=== PATIENT | male | born 1970 | race Caucasian/White ===

== ENCOUNTER 2018-12-16 18:21 | Inpatient (IN) ==
[2018-12-16] MEDS ORDERED: GLUCAGON 1 MG VIAL IM PRN (21:15)
[2018-12-16] MEDS ORDERED: SODIUM CHLORIDE 0.9% 1,000 ML IV SCH (21:30)
[2018-12-16] MEDS ORDERED: PIPERACILLIN/TAZOBACTAM 3,375 MG in SODIUM CHLORIDE 0.9% 100 ML IV SCH (21:30)
[2018-12-16 22:10] LABS: Basophils % 0.3 % (0.0-0.8); Eosinophils % 0.1 % (0.00-10.9); Hemoglobin 7.7 GM/DL (14.0-18.0); Immature Granulocytes % 1.5 %; Lymphocytes # 1.3 10*3/uL (1.4-4.0); Lymphocytes % 18.6 % (21.2-54.2); Mean Corpuscular HGB Conc 29.6 GM/DL (32-36); Mean Corpuscular Hemoglobin 25 PG (27-34); Mean Corpuscular Volume 83.1 FL (87-102); Mean Platelet Volume 9.1 FL (9.6-12.0); Monocytes # 0.7 10*3/uL (0.11-0.8); Monocytes % 9.6 % (1.7-12.7); Neutrophils # 4.8 10*3/uL (1.4-7.4); Neutrophils % 69.9 % (38.7-73.9); Platelet Count 202 T/CUMM (130-400); Red Blood Count 3.13 MC/CUMM (3.8-5.5); Red Cell Distribution Width 15.9 % (9.3-17.3); White Blood Count 6.9 T/CUMM (4-12)
[2018-12-16] MEDS: HEPARIN 5,000 UNIT/1 ML VIAL SUBCUT SCH (22:22)
[2018-12-16 22:30] LABS: ABG Base Excess -12.3 MMOL/L (-2.5-2.5); ABG HCO3 14.7 MMOL/L (20-26); ABG Oxygen Saturation 95.7 % (95-100); ABG PCO2 32.4 MM HG (35-48); ABG PH 7.247 (7.35-7.45); ABG PO2 88.5 MM HG (80-95); ABG TCO2 13.4 MMOL/L (23-27); Allen Test Positive
[2018-12-16 22:33] LABS: Alanine Aminotransferase 11 U/L (16-61); Albumin 1.8 G/DL (3.4-5.0); Alkaline Phosphatase 135 U/L (45-117); Aspartate Amino Transferase 17 U/L (0-37); Bilirubin,Total < 0.39 MG/DL (0.2-1.0); Blood Urea Nitrogen 59 MG/DL (7-18); Calcium 7.4 MG/DL (8.5-10.1); Glucose 49 MG/DL (74-106); Osmolality,Calculated 286.8 MOS/KG (273-304); Potassium 4.2 MMOL/L (3.5-5.1); Sodium 137 MMOL/L (136-145); Total Protein 6.3 G/DL (6.4-8.3)
[2018-12-16 22:41] LABS: Apearance,Urine CLOUDY (Clear); Bilirubin,Urine Negative (Negative); Blood, Urine Moderate mg/dL (Negative); Glucose,Urine (UA) 50 mg/dL (Negative); Ketones,Urine Negative (Negative); Mucus,Urine Occasional /LPF (Occasional); Nitrite,Urine Negative (Negative); Protein,Urine >=500 MG/DL; RBC,Urine 36 /HPF (0-4); Squamous Epithelial Cell,Urine Occasional /HPF (0-10); Urine Color Yellow (Yellow); Urine Urobilinogen < 2.0 EU/DL (0.2-1.0); WBC,Urine 208 /HPF (0-6)
[2018-12-16 22:45] LABS: Barbiturates Screen,Urine Negative (Negative); Benzodiazepines Screen,Urine Negative (Negative); Cannabinoid Screen,Urine Negative (Negative); Opiate Screen,Urine Negative (Negative); Phencyclidine Screen,Urine Negative (Negative)
[2018-12-16] MEDS ORDERED: DEXTROSE 50% 25 GM/50 ML SYRINGE IV ONE (23:02)
[2018-12-16] MEDS: DEXTROSE 50% 25 GM/50 ML VIAL IV PRN (23:03)
[2018-12-17] MEDS: INSULIN LISPRO 100 UNIT/ML SUBCUT SCH ×5 (00:58→20:57)
[2018-12-17] MEDS ORDERED: DEXTROSE 50% 25 GM/50 ML SYRINGE IV ONE (02:25)
[2018-12-17] MEDS: DEXTROSE 5% NACL 0.9% 1,000 ML IV SCH ×2 (02:25→10:25)
[2018-12-17] MEDS: DEXTROSE 50% 25 GM/50 ML VIAL IV PRN (02:27)
[2018-12-17] MEDS ORDERED: MORPHINE 4 MG/1 ML VIAL IV ONE (05:51)
[2018-12-17] MEDS ORDERED: MORPHINE 4 MG/1 ML VIAL ONE (05:54)
[2018-12-17] MEDS: HEPARIN 5,000 UNIT/1 ML VIAL SUBCUT SCH ×3 (06:01→20:58)
[2018-12-17 06:30] LABS: Calcium 7.9 MG/DL (8.5-10.1); Osmolality,Calculated 288.1 MOS/KG (273-304); Potassium 4.8 MMOL/L (3.5-5.1)
[2018-12-17 07:59] LABS: Basophils % 0.2 % (0.0-0.8); Eosinophils % 0.1 % (0.00-10.9); Hematocrit 31.6 VOL% (42.0-52.0); Hemoglobin 9.1 GM/DL (14.0-18.0); Immature Granulocytes % 1.1 %; Lymphocytes % 11.1 % (21.2-54.2); Mean Corpuscular HGB Conc 28.8 GM/DL (32-36); Mean Corpuscular Hemoglobin 24 PG (27-34); Mean Platelet Volume 9.1 FL (9.6-12.0); Monocytes # 0.8 10*3/uL (0.11-0.8); Monocytes % 9.2 % (1.7-12.7); Neutrophils # 6.8 10*3/uL (1.4-7.4); Neutrophils % 78.3 % (38.7-73.9); Platelet Count 196 T/CUMM (130-400); Red Blood Count 3.76 MC/CUMM (3.8-5.5); White Blood Count 8.7 T/CUMM (4-12)
[2018-12-17 08:58] LABS: Hypochromasia 1+; Platelet Estimate Adequate
[2018-12-17] MEDS: ASPIRIN EC 325 MG TABLET PO SCH (09:59)
[2018-12-17] MEDS: PANTOPRAZOLE 40 MG TABLET PO SCH (09:59)
[2018-12-17] MEDS: LINEZOLID INJ 600 MG in PREMIX 1 EACH IV SCH ×2 (09:59→20:50)
[2018-12-17] MEDS: LEVOFLOXACIN INJ 750 MG in PREMIX 1 EACH IV SCH (11:00)
[2018-12-17] MEDS: CARVEDILOL 3.125 MG TABLET PO SCH ×2 (13:28→20:57)
[2018-12-17] MEDS: SODIUM CHLORIDE 0.9% 1,000 ML IV SCH (15:11)
[2018-12-17] MEDS: ATORVASTATIN 40 MG TABLET PO SCH (20:57)
[2018-12-17] MEDS ORDERED: INSULIN GLARGINE 100 UNIT/ML SUBCUT SCH (21:00)
[2018-12-18] MEDS: ONDANSETRON 4 MG/2 ML VIAL IV PRN (00:20)
[2018-12-18] MEDS: SODIUM CHLORIDE 0.9% 1,000 ML IV SCH (02:15)
[2018-12-18] MEDS ORDERED: DEXTROSE 50% 25 GM/50 ML SYRINGE IV ONE (03:23)
[2018-12-18] MEDS: DEXTROSE 50% 25 GM/50 ML VIAL IV PRN (03:23)
[2018-12-18 04:33] LABS: Risk Ratio 3.38
[2018-12-18 05:53] LABS: Calcium 7.9 MG/DL (8.5-10.1); Osmolality,Calculated 283.4 MOS/KG (273-304); Potassium 5.7 MMOL/L (3.5-5.1)
[2018-12-18] MEDS: HEPARIN 5,000 UNIT/1 ML VIAL SUBCUT SCH ×3 (06:15→21:14)
[2018-12-18] MEDS: INSULIN LISPRO 100 UNIT/ML SUBCUT SCH ×4 (08:58→21:15)
[2018-12-18] MEDS: PANTOPRAZOLE 40 MG TABLET PO SCH (09:01)
[2018-12-18] MEDS: ASPIRIN EC 325 MG TABLET PO SCH (09:01)
[2018-12-18] MEDS: LINEZOLID INJ 600 MG in PREMIX 1 EACH IV SCH ×2 (09:02→22:06)
[2018-12-18] MEDS: CARVEDILOL 3.125 MG TABLET PO SCH ×2 (09:02→21:13)
[2018-12-18] MEDS: SODIUM BICARB INJ 50 MEQ in SODIUM CHLORIDE 0.45% 1,000 ML IV SCH (17:36)
[2018-12-18] MEDS: ATORVASTATIN 40 MG TABLET PO SCH (21:13)
[2018-12-19 02:44] LABS: Calcium 7.7 MG/DL (8.5-10.1); Osmolality,Calculated 288.4 MOS/KG (273-304); Potassium 5.3 MMOL/L (3.5-5.1)
[2018-12-19 02:53] LABS: Basophils % 0.3 % (0.0-0.8); Eosinophils # 0.1 10*3/uL (0.0-0.87); Eosinophils % 1.3 % (0.00-10.9); Hematocrit 27.4 VOL% (42.0-52.0); Hemoglobin 7.9 GM/DL (14.0-18.0); Immature Granulocytes Absolute 0.09 #; Mean Corpuscular HGB Conc 28.8 GM/DL (32-36); Mean Corpuscular Hemoglobin 24 PG (27-34); Mean Corpuscular Volume 84.6 FL (87-102); Mean Platelet Volume 9.5 FL (9.6-12.0); Monocytes # 1.1 10*3/uL (0.11-0.8); Monocytes % 11.8 % (1.7-12.7); NRBC # 0.02 10*3/uL; Neutrophils # 6.8 10*3/uL (1.4-7.4); Neutrophils % 74.6 % (38.7-73.9); Platelet Count 210 T/CUMM (130-400); Red Blood Count 3.24 MC/CUMM (3.8-5.5); Red Cell Distribution Width 16.7 % (9.3-17.3); White Blood Count 9.1 T/CUMM (4-12)
[2018-12-19] MEDS: HEPARIN 5,000 UNIT/1 ML VIAL SUBCUT SCH ×2 (05:37→14:19)
[2018-12-19] MEDS: ACETAMINOPHEN 325 MG TABLET PO PRN (09:26)
[2018-12-19] MEDS: ASPIRIN EC 325 MG TABLET PO SCH (09:26)
[2018-12-19] MEDS: INSULIN LISPRO 100 UNIT/ML SUBCUT SCH ×4 (09:26→21:44)
[2018-12-19] MEDS: CARVEDILOL 3.125 MG TABLET PO SCH (09:26)
[2018-12-19] MEDS: PANTOPRAZOLE 40 MG TABLET PO SCH (09:26)
[2018-12-19] MEDS: LEVOFLOXACIN INJ 750 MG in PREMIX 1 EACH IV SCH (09:27)
[2018-12-19] MEDS: LINEZOLID INJ 600 MG in PREMIX 1 EACH IV SCH (10:13)
[2018-12-19] MEDS ORDERED: MAGNESIUM SULF RIDER 4 GM in PREMIX 1 EACH IV PRN (10:14)
[2018-12-19] MEDS ORDERED: MAGNESIUM SULF RIDER 2 GM in PREMIX 1 EACH IV PRN (10:14)
[2018-12-19] MEDS ORDERED: SODIUM CHLORIDE 0.9% 1,000 ML IV PRN (11:23)
[2018-12-19] MEDS ORDERED: SODIUM CHLORIDE 0.9% 1,000 ML IV ONE (11:26)
[2018-12-19] MEDS ORDERED: SODIUM CHLORIDE 0.9% 2,000 ML IV ONE (11:29)
[2018-12-19] MEDS ORDERED: SODIUM CHLORIDE 0.45% IV SCH (11:49)
[2018-12-19] MEDS ORDERED: SODIUM BICARB IV SCH (11:49)
[2018-12-19] MEDS ORDERED: SODIUM BICARB INJ 50 MEQ in SODIUM CHLORIDE 0.45% 1,000 ML IV SCH (11:51)
[2018-12-19] MEDS ORDERED: VANCOMYCIN INJ 1,500 MG in SODIUM CHLORIDE 0.9% 500 ML IV PRN (11:58)
[2018-12-19] MEDS ORDERED: oxyCODONE/ACETAMINOPHEN 5-325 MG TABLET PO PRN (12:47)
[2018-12-19 13:13] LABS: Apearance,Urine CLOUDY (Clear); Bacteria,Urine Few /HPF (Few); Bilirubin,Urine Negative (Negative); Blood, Urine Moderate mg/dL (Negative); Glucose,Urine (UA) 50 mg/dL (Negative); Ketones,Urine Negative (Negative); Mucus,Urine Occasional /LPF (Occasional); Nitrite,Urine Negative (Negative); Protein,Urine 100 MG/DL; RBC,Urine 37 /HPF (0-4); Squamous Epithelial Cell,Urine Occasional /HPF (0-10); Urine Specific Gravity 1.015 (1.001-1.035); Urine Urobilinogen < 2.0 EU/DL (0.2-1.0); WBC,Urine 435 /HPF (0-6)
[2018-12-19 13:14] LABS: Urine Color Yellow (Yellow)
[2018-12-19] MEDS: PIPERACILLIN/TAZOBACTAM 3,375 MG in SODIUM CHLORIDE 0.9% 100 ML IV SCH ×2 (13:17→23:28)
[2018-12-19] MEDS ORDERED: NOREPINEPHRINE 8 MG in SODIUM CHLORIDE 0.9% 242 ML IV PRN (13:38)
[2018-12-19 13:39] LABS: ABG Base Excess -16.1 MMOL/L (-2.5-2.5); ABG Oxygen Saturation 95.6 % (95-100); ABG PCO2 30.1 MM HG (35-48); ABG TCO2 10.8 MMOL/L (23-27); Allen Test Positive; Pt O2 Delivery Device Room Air
[2018-12-19] MEDS ORDERED: SODIUM POLYSTYRENE SULFATE 15 GM/60 ML BOTTLE PO STA (13:39)
[2018-12-19] MEDS ORDERED: SODIUM BICARBONATE 50 MEQ/50 ML SYRINGE IV ONE (13:44)
[2018-12-19] MEDS ORDERED: SODIUM BICARB INJ 150 MEQ in STERILE WATER INJ 1,000 ML IV SCH (14:00)
[2018-12-19] MEDS: SODIUM BICARB INJ 150 MEQ in STERILE WATER INJ 1,000 ML IV SCH (14:12)
[2018-12-19] MEDS ORDERED: SODIUM BICARB INJ 100 MEQ in STERILE WATER INJ 1,000 ML IV SCH (15:00)
[2018-12-19 15:15] LABS: ABG Base Excess -13.7 MMOL/L (-2.5-2.5); ABG HCO3 13.7 MMOL/L (20-26); ABG Oxygen Saturation 98.8 % (95-100); ABG PCO2 31.9 MM HG (35-48); ABG PH 7.219 (7.35-7.45); ABG TCO2 12.5 MMOL/L (23-27); Allen Test Positive; Pt O2 Delivery Device Room Air
[2018-12-19 15:29] LABS: Calcium 7.4 MG/DL (8.5-10.1); Osmolality,Calculated 287.5 MOS/KG (273-304)
[2018-12-19 15:30] LABS: Potassium 6.1 MMOL/L (3.5-5.1)
[2018-12-19] MEDS ORDERED: CALCIUM GLUCONATE 2,000 MG in SODIUM CHLORIDE 0.9% 100 ML IV ONE (15:48)
[2018-12-19] MEDS ORDERED: DEXTROSE 50% 25 GM/50 ML SYRINGE IV ONE (15:48)
[2018-12-19] MEDS ORDERED: INSULIN REGULAR 100 UNIT/ML IV ONE (15:49)
[2018-12-19] MEDS ORDERED: ALBUTEROL 1.25 MG/3 ML NEB RESP TX ONE (15:50)
[2018-12-19] MEDS ORDERED: VANCOMYCIN INJ 2,000 MG in SODIUM CHLORIDE 0.9% 500 ML IV ONE (16:00)
[2018-12-19] MEDS ORDERED: VANCOMYCIN INJ 1,000 MG in SODIUM CHLORIDE 0.9% 250 ML IV ONE (16:00)
[2018-12-19] MEDS: SODIUM BICARB INJ 50 MEQ in SODIUM CHLORIDE 0.45% 1,000 ML IV SCH (21:42)
[2018-12-19] MEDS: PARoxetine 20 MG TABLET PO SCH (21:45)
[2018-12-19] MEDS: ATORVASTATIN 40 MG TABLET PO SCH (21:45)
[2018-12-19] MEDS: ONDANSETRON 4 MG/2 ML VIAL IV PRN (23:27)
[2018-12-19] MEDS: PROMETHAZINE 25 MG/1 ML VIAL IM PRN (23:53)
[2018-12-20 04:23] LABS: Basophils # 0.1 10*3/uL (0.0-0.2); Basophils % 0.5 % (0.0-0.8); Eosinophils # 0.1 10*3/uL (0.0-0.87); Eosinophils % 0.8 % (0.00-10.9); Hemoglobin 8.4 GM/DL (14.0-18.0); Immature Granulocytes % 1.4 %; Immature Granulocytes Absolute 0.15 #; Lymphocytes # 0.9 10*3/uL (1.4-4.0); Lymphocytes % 8.7 % (21.2-54.2); Mean Corpuscular HGB Conc 28.2 GM/DL (32-36); Mean Corpuscular Hemoglobin 24 PG (27-34); Mean Corpuscular Volume 86.1 FL (87-102); Mean Platelet Volume 9.4 FL (9.6-12.0); Monocytes # 0.7 10*3/uL (0.11-0.8); Monocytes % 6.3 % (1.7-12.7); NRBC # 0.02 10*3/uL; Neutrophils # 8.5 10*3/uL (1.4-7.4); Neutrophils % 82.3 % (38.7-73.9); Platelet Count 233 T/CUMM (130-400); Red Blood Count 3.46 MC/CUMM (3.8-5.5); Red Cell Distribution Width 16.9 % (9.3-17.3); White Blood Count 10.4 T/CUMM (4-12)
[2018-12-20 04:26] LABS: Hematocrit 29.8 VOL% (42.0-52.0)
[2018-12-20 04:43] LABS: Calcium 7.7 MG/DL (8.5-10.1); Osmolality,Calculated 288.5 MOS/KG (273-304); Potassium 5.8 MMOL/L (3.5-5.1)
[2018-12-20 05:20] LABS: Platelet Estimate Normal
[2018-12-20 05:21] LABS: Polychromasia Few
[2018-12-20] MEDS: INSULIN LISPRO 100 UNIT/ML SUBCUT SCH ×4 (08:33→21:39)
[2018-12-20] MEDS: PANTOPRAZOLE 40 MG TABLET PO SCH (10:23)
[2018-12-20] MEDS: VENLAFAXINE 37.5 MG TABLET PO SCH (10:23)
[2018-12-20] MEDS: ASPIRIN EC 81 MG TABLET PO SCH (10:23)
[2018-12-20] MEDS: ONDANSETRON 4 MG/2 ML VIAL IV PRN ×2 (11:19→23:13)
[2018-12-20] MEDS: PIPERACILLIN/TAZOBACTAM 3,375 MG in SODIUM CHLORIDE 0.9% 100 ML IV SCH (13:05)
[2018-12-20] MEDS: SODIUM BICARB INJ 150 MEQ in STERILE WATER INJ 1,000 ML IV SCH (16:25)
[2018-12-20] MEDS: ATORVASTATIN 40 MG TABLET PO SCH (21:40)
[2018-12-20] MEDS: PARoxetine 20 MG TABLET PO SCH (21:40)
[2018-12-20] MEDS: PROMETHAZINE 25 MG/1 ML VIAL IM PRN (23:25)
[2018-12-21] MEDS: PIPERACILLIN/TAZOBACTAM 3,375 MG in SODIUM CHLORIDE 0.9% 100 ML IV SCH ×3 (00:40→23:49)
[2018-12-21 06:02] LABS: Calcium 7.7 MG/DL (8.5-10.1); Osmolality,Calculated 292.5 MOS/KG (273-304); Potassium 5.8 MMOL/L (3.5-5.1)
[2018-12-21 06:16] LABS: Basophils % 0.4 % (0.0-0.8); Eosinophils # 0.1 10*3/uL (0.0-0.87); Eosinophils % 0.7 % (0.00-10.9); Hematocrit 30.2 VOL% (42.0-52.0); Hemoglobin 8.5 GM/DL (14.0-18.0); Immature Granulocytes % 1.9 %; Immature Granulocytes Absolute 0.19 #; Lymphocytes # 0.8 10*3/uL (1.4-4.0); Lymphocytes % 8.2 % (21.2-54.2); Mean Corpuscular HGB Conc 28.1 GM/DL (32-36); Mean Corpuscular Hemoglobin 24 PG (27-34); Mean Platelet Volume 9.3 FL (9.6-12.0); Monocytes # 0.6 10*3/uL (0.11-0.8); Monocytes % 6.4 % (1.7-12.7); Neutrophils # 8.1 10*3/uL (1.4-7.4); Neutrophils % 82.4 % (38.7-73.9); Platelet Count 232 T/CUMM (130-400); Red Blood Count 3.51 MC/CUMM (3.8-5.5); Red Cell Distribution Width 16.6 % (9.3-17.3); White Blood Count 9.9 T/CUMM (4-12)
[2018-12-21] MEDS: INSULIN LISPRO 100 UNIT/ML SUBCUT SCH ×4 (08:24→20:30)
[2018-12-21] MEDS: PANTOPRAZOLE 40 MG TABLET PO SCH (08:27)
[2018-12-21] MEDS: VENLAFAXINE 37.5 MG TABLET PO SCH (08:27)
[2018-12-21] MEDS: ASPIRIN EC 81 MG TABLET PO SCH (08:27)
[2018-12-21] MEDS ORDERED: SODIUM POLYSTYRENE SULFATE 15 GM/60 ML BOTTLE PO ONE ×2 (12:46→18:10)
[2018-12-21] MEDS: ONDANSETRON 4 MG/2 ML VIAL IV PRN ×2 (13:42→19:40)
[2018-12-21] MEDS: SODIUM BICARB INJ 150 MEQ in STERILE WATER INJ 1,000 ML IV SCH (17:00)
[2018-12-21] MEDS: ATORVASTATIN 40 MG TABLET PO SCH (20:31)
[2018-12-21] MEDS: PARoxetine 20 MG TABLET PO SCH (20:31)
[2018-12-22 05:13] LABS: Calcium 7.4 MG/DL (8.5-10.1); Osmolality,Calculated 293.5 MOS/KG (273-304); Potassium 5.3 MMOL/L (3.5-5.1)
[2018-12-22 05:44] LABS: Basophils % 0.3 % (0.0-0.8); Eosinophils # 0.1 10*3/uL (0.0-0.87); Eosinophils % 1.2 % (0.00-10.9); Hematocrit 28.6 VOL% (42.0-52.0); Immature Granulocytes % 1.7 %; Immature Granulocytes Absolute 0.19 #; Lymphocytes # 0.9 10*3/uL (1.4-4.0); Lymphocytes % 8.1 % (21.2-54.2); Mean Corpuscular HGB Conc 28.7 GM/DL (32-36); Mean Corpuscular Hemoglobin 25 PG (27-34); Mean Corpuscular Volume 85.9 FL (87-102); Mean Platelet Volume 9.5 FL (9.6-12.0); Monocytes # 0.7 10*3/uL (0.11-0.8); Monocytes % 6.4 % (1.7-12.7); Neutrophils # 9.1 10*3/uL (1.4-7.4); Neutrophils % 82.3 % (38.7-73.9); Platelet Count 219 T/CUMM (130-400); Red Blood Count 3.33 MC/CUMM (3.8-5.5); Red Cell Distribution Width 16.8 % (9.3-17.3)
[2018-12-22 05:45] LABS: Hemoglobin 8.2 GM/DL (14.0-18.0)
[2018-12-22 06:19] LABS: Hypochromasia 1+; Ovalocytes Slight; Platelet Estimate Adequate
[2018-12-22] MEDS: INSULIN LISPRO 100 UNIT/ML SUBCUT SCH ×4 (07:36→20:17)
[2018-12-22] MEDS ORDERED: VANCOMYCIN INJ 1,500 MG in SODIUM CHLORIDE 0.9% 500 ML IV ONE (09:00)
[2018-12-22] MEDS: PANTOPRAZOLE 40 MG TABLET PO SCH (09:05)
[2018-12-22] MEDS: VENLAFAXINE 37.5 MG TABLET PO SCH (09:05)
[2018-12-22] MEDS: ASPIRIN EC 81 MG TABLET PO SCH (09:05)
[2018-12-22] MEDS: PIPERACILLIN/TAZOBACTAM 3,375 MG in SODIUM CHLORIDE 0.9% 100 ML IV SCH ×2 (11:45→23:00)
[2018-12-22] MEDS ORDERED: fentaNYL 100 MCG/2 ML VIAL ONE (13:01)
[2018-12-22] MEDS ORDERED: [UNRECOGNIZED DRUG - OTHER] IV ONE (13:19)
[2018-12-22] MEDS ORDERED: FAMOTIDINE 20 MG/2 ML VIAL IV ONE ×2 (13:21→14:15)
[2018-12-22] MEDS ORDERED: SUGAMMADEX 200 MG/2 ML VIAL IV ONE (13:41)
[2018-12-22] MEDS ORDERED: ONDANSETRON 4 MG/2 ML VIAL ONE (14:14)
[2018-12-22] MEDS ORDERED: DEXAMETHASONE 4 MG/1 ML VIAL ONE (14:14)
[2018-12-22] MEDS ORDERED: SEVOFLURANE 1 UNIT/15 MINUTE INH ONE (14:14)
[2018-12-22] MEDS ORDERED: ROCURONIUM 100 MG/10 ML VIAL IV ONE (14:15)
[2018-12-22] MEDS ORDERED: ETOMIDATE 40 MG/20 ML VIAL IV ONE (14:15)
[2018-12-22] MEDS: SODIUM BICARB INJ 150 MEQ in STERILE WATER INJ 1,000 ML IV SCH (17:30)
[2018-12-22] MEDS: ATORVASTATIN 40 MG TABLET PO SCH (20:17)
[2018-12-22] MEDS: PARoxetine 20 MG TABLET PO SCH (20:17)
[2018-12-23 06:33] LABS: Calcium 7.3 MG/DL (8.5-10.1); Osmolality,Calculated 304.2 MOS/KG (273-304); Potassium 5.1 MMOL/L (3.5-5.1)
[2018-12-23 06:37] LABS: Basophils % 0.1 % (0.0-0.8); Hematocrit 28.1 VOL% (42.0-52.0); Immature Granulocytes % 1.8 %; Immature Granulocytes Absolute 0.14 #; Lymphocytes # 0.3 10*3/uL (1.4-4.0); Lymphocytes % 3.6 % (21.2-54.2); Mean Corpuscular HGB Conc 28.5 GM/DL (32-36); Mean Corpuscular Hemoglobin 24 PG (27-34); Mean Corpuscular Volume 85.7 FL (87-102); Monocytes % 0.5 % (1.7-12.7); NRBC # 0.02 10*3/uL; Neutrophils # 7.3 10*3/uL (1.4-7.4); Platelet Count 212 T/CUMM (130-400); Red Blood Count 3.28 MC/CUMM (3.8-5.5); Red Cell Distribution Width 16.7 % (9.3-17.3); White Blood Count 7.7 T/CUMM (4-12)
[2018-12-23 06:51] LABS: Lymphocytes 11 % (20-55); Platelet Estimate Normal; Polychromasia Few; Segmented Neutrophils 89 % (50-85); Total Cells Counted 100
[2018-12-23 06:52] LABS: Target Cells Few
[2018-12-23] MEDS: ASPIRIN EC 81 MG TABLET PO SCH (10:09)
[2018-12-23] MEDS: VENLAFAXINE 37.5 MG TABLET PO SCH (10:10)
[2018-12-23] MEDS: PANTOPRAZOLE 40 MG TABLET PO SCH (10:10)
[2018-12-23] MEDS: INSULIN LISPRO 100 UNIT/ML SUBCUT SCH ×3 (10:22→19:29)
[2018-12-23] MEDS: PIPERACILLIN/TAZOBACTAM 3,375 MG in SODIUM CHLORIDE 0.9% 100 ML IV SCH (13:50)
[2018-12-23] MEDS: SODIUM BICARB INJ 150 MEQ in STERILE WATER INJ 1,000 ML IV SCH (13:51)
[2018-12-23] MEDS ORDERED: OXYMETAZOLINE 0.05% NASAL SPRAY 15 ML BOTTLE BOTH NARES PRN (18:01)
[2018-12-23] MEDS ORDERED: INSULIN REGULAR 100 UNIT/ML ONE (19:28)
[2018-12-23] MEDS: ATORVASTATIN 40 MG TABLET PO SCH (21:07)
[2018-12-24] MEDS: PIPERACILLIN/TAZOBACTAM 3,375 MG in SODIUM CHLORIDE 0.9% 100 ML IV SCH ×2 (00:27→11:00)
[2018-12-24] MEDS: INSULIN LISPRO 100 UNIT/ML SUBCUT SCH ×4 (00:30→20:17)
[2018-12-24 07:18] LABS: Basophils % 0.1 % (0.0-0.8); Eosinophils % 0.1 % (0.00-10.9); Hematocrit 27.1 VOL% (42.0-52.0); Hemoglobin 7.9 GM/DL (14.0-18.0); Immature Granulocytes % 1.1 %; Immature Granulocytes Absolute 0.11 #; Lymphocytes # 0.7 10*3/uL (1.4-4.0); Lymphocytes % 6.9 % (21.2-54.2); Mean Corpuscular HGB Conc 29.2 GM/DL (32-36); Mean Corpuscular Hemoglobin 24 PG (27-34); Mean Corpuscular Volume 83.4 FL (87-102); Mean Platelet Volume 9.1 FL (9.6-12.0); Monocytes # 0.7 10*3/uL (0.11-0.8); Monocytes % 6.4 % (1.7-12.7); Neutrophils # 8.8 10*3/uL (1.4-7.4); Neutrophils % 85.4 % (38.7-73.9); Platelet Count 232 T/CUMM (130-400); Red Blood Count 3.25 MC/CUMM (3.8-5.5); Red Cell Distribution Width 16.9 % (9.3-17.3); White Blood Count 10.3 T/CUMM (4-12)
[2018-12-24 07:31] LABS: Calcium 6.7 MG/DL (8.5-10.1); Osmolality,Calculated 311.1 MOS/KG (273-304); Potassium 4.8 MMOL/L (3.5-5.1)
[2018-12-24 07:40] LABS: Prealbumin 10.2 MG/DL (20-40)
[2018-12-24 09:01] LABS: Hepatitis A Ab IgM Quant 0.19 Index; Hepatitis A Ab IgM Result Negative (Negative); Hepatitis B Core IgM Quant 0.12 Index; Hepatitis B Core IgM Result Negative (Negative); Hepatitis B Surface Ag Quant < 0.10 Index; Hepatitis B Surface Ag Result Negative (Negative); Hepatitis C Virus Ab Quant 0.18 Index; Hepatitis C Virus Ab Result Negative (Negative)
[2018-12-24] MEDS: ASPIRIN EC 81 MG TABLET PO SCH (11:01)
[2018-12-24] MEDS: SODIUM BICARB INJ 150 MEQ in STERILE WATER INJ 1,000 ML IV SCH (12:18)
[2018-12-24] MEDS ORDERED: LIDOCAINE 1% 20 ML VIAL ONE (13:01)
[2018-12-24] MEDS ORDERED: HEPARIN 5,000 UNIT/1 ML VIAL ONE (13:01)
[2018-12-24] MEDS: PANTOPRAZOLE 40 MG TABLET PO SCH (14:20)
[2018-12-24] MEDS ORDERED: ceFAZolin 1,000 MG VIAL ONE (14:41)
[2018-12-24] MEDS ORDERED: PROPOFOL 200 MG/20 ML VIAL IV ONE (15:12)
[2018-12-24] MEDS ORDERED: MIDAZOLAM 2 MG/2 ML VIAL ONE (15:13)
[2018-12-24] MEDS ORDERED: fentaNYL 100 MCG/2 ML VIAL ONE (15:13)
[2018-12-24] MEDS: SEVELAMER CARBONATE POWDER 2.4 GM PACK PER TUBE SCH ×2 (15:49→21:16)
[2018-12-24] MEDS ORDERED: INSULIN GLARGINE 100 UNIT/ML SUBCUT SCH (21:00)
[2018-12-25] MEDS: INSULIN LISPRO 100 UNIT/ML SUBCUT SCH ×5 (00:14→23:16)
[2018-12-25] MEDS: PIPERACILLIN/TAZOBACTAM 3,375 MG in SODIUM CHLORIDE 0.9% 100 ML IV SCH ×3 (00:14→23:18)
[2018-12-25] MEDS ORDERED: MORPHINE 4 MG/1 ML VIAL IV ONE ×2 (00:41→05:22)
[2018-12-25 04:26] LABS: Basophils % 0.1 % (0.0-0.8); Eosinophils % 0.4 % (0.00-10.9); Hemoglobin 7.5 GM/DL (14.0-18.0); Immature Granulocytes % 1.9 %; Immature Granulocytes Absolute 0.14 #; Lymphocytes # 0.7 10*3/uL (1.4-4.0); Mean Corpuscular HGB Conc 28.8 GM/DL (32-36); Mean Corpuscular Hemoglobin 24 PG (27-34); Mean Corpuscular Volume 83.6 FL (87-102); Mean Platelet Volume 9.1 FL (9.6-12.0); Monocytes # 0.6 10*3/uL (0.11-0.8); NRBC # 0.02 10*3/uL; Neutrophils # 6.1 10*3/uL (1.4-7.4); Neutrophils % 80.6 % (38.7-73.9); Platelet Count 190 T/CUMM (130-400); Red Blood Count 3.11 MC/CUMM (3.8-5.5); Red Cell Distribution Width 17.2 % (9.3-17.3); White Blood Count 7.5 T/CUMM (4-12)
[2018-12-25 04:47] LABS: Hypochromasia 1+; Ovalocytes Slight; Platelet Estimate Adequate
[2018-12-25 04:58] LABS: Osmolality,Calculated 306.1 MOS/KG (273-304)
[2018-12-25] MEDS: LANSOPRAZOLE ODT 30 MG TABLET PER TUBE SCH (08:22)
[2018-12-25] MEDS: ASPIRIN EC 81 MG TABLET PO SCH (08:22)
[2018-12-25] MEDS: SEVELAMER CARBONATE POWDER 2.4 GM PACK PER TUBE SCH ×3 (08:22→20:49)
[2018-12-25] MEDS ORDERED: CALCIUM GLUCONATE 1,000 MG in SODIUM CHLORIDE 0.9% 100 ML IV ONE (09:30)
[2018-12-25] MEDS: SODIUM BICARB INJ 150 MEQ in STERILE WATER INJ 1,000 ML IV SCH ×2 (09:39→12:41)
[2018-12-25] MEDS ORDERED: HEPARIN 10,000 UNIT/10 ML VIAL IV PRN (12:40)
[2018-12-25] MEDS: PROMETHAZINE 25 MG/1 ML VIAL IM PRN (20:30)
[2018-12-25] MEDS: CARVEDILOL 3.125 MG TABLET PO SCH (20:49)
[2018-12-25] MEDS: TAMSULOSIN 0.4 MG CAPSULE PO SCH (20:49)
[2018-12-25] MEDS ORDERED: INSULIN GLARGINE 100 UNIT/ML SUBCUT SCH (21:00)
[2018-12-25] MEDS: ZIPRASIDONE 20 MG/1 ML VIAL IM PRN (21:52)
[2018-12-26 04:09] LABS: Basophils % 0.1 % (0.0-0.8); Eosinophils % 0.5 % (0.00-10.9); Hematocrit 23.4 VOL% (42.0-52.0); Hemoglobin 6.7 GM/DL (14.0-18.0); Immature Granulocytes % 1.9 %; Immature Granulocytes Absolute 0.15 #; Lymphocytes # 0.9 10*3/uL (1.4-4.0); Lymphocytes % 10.6 % (21.2-54.2); Mean Corpuscular HGB Conc 28.6 GM/DL (32-36); Mean Corpuscular Hemoglobin 24 PG (27-34); Mean Corpuscular Volume 83.6 FL (87-102); Mean Platelet Volume 9.7 FL (9.6-12.0); Monocytes % 12.3 % (1.7-12.7); NRBC # 0.02 10*3/uL; Neutrophils % 74.6 % (38.7-73.9); Platelet Count 152 T/CUMM (130-400); Red Cell Distribution Width 16.9 % (9.3-17.3); White Blood Count 8.1 T/CUMM (4-12)
[2018-12-26] MEDS: ACETAMINOPHEN 325 MG TABLET PO PRN ×2 (04:10→21:17)
[2018-12-26 04:27] LABS: Calcium 6.1 MG/DL (8.5-10.1); Osmolality,Calculated 296.8 MOS/KG (273-304); Potassium 3.6 MMOL/L (3.5-5.1)
[2018-12-26 04:49] LABS: Anisocytosis 1+; Band Neutrophils 3 % (0-10); Eosinophils 3 % (0-10); Hypochromasia 2+; Lymphocytes 7 % (20-55); Segmented Neutrophils 81 % (50-85); Total Cells Counted 100
[2018-12-26 04:50] LABS: Ovalocytes 2+; Platelet Estimate Adequate; Tear Drop Cells Few
[2018-12-26] MEDS: INSULIN LISPRO 100 UNIT/ML SUBCUT SCH ×3 (05:54→18:47)
[2018-12-26] MEDS: TAMSULOSIN 0.4 MG CAPSULE PO SCH ×2 (08:13→21:17)
[2018-12-26] MEDS: LANSOPRAZOLE ODT 30 MG TABLET PER TUBE SCH (08:21)
[2018-12-26] MEDS: SEVELAMER CARBONATE POWDER 2.4 GM PACK PER TUBE SCH ×3 (08:22→21:17)
[2018-12-26] MEDS: ASPIRIN EC 81 MG TABLET PO SCH (08:22)
[2018-12-26] MEDS: ATORVASTATIN 10 MG TABLET PO SCH (08:22)
[2018-12-26] MEDS: CARVEDILOL 3.125 MG TABLET PO SCH (08:26)
[2018-12-26] MEDS ORDERED: amLODIPine 2.5 MG TABLET PO SCH (09:00)
[2018-12-26] MEDS: PIPERACILLIN/TAZOBACTAM 3,375 MG in SODIUM CHLORIDE 0.9% 100 ML IV SCH (14:25)
[2018-12-26] MEDS: ZIPRASIDONE 20 MG/1 ML VIAL IM PRN (15:53)
[2018-12-26] MEDS: CARVEDILOL 6.25 MG TABLET PO SCH (16:57)
[2018-12-26] MEDS: INSULIN GLARGINE 100 UNIT/ML SUBCUT SCH (21:18)
[2018-12-27] MEDS: PIPERACILLIN/TAZOBACTAM 3,375 MG in SODIUM CHLORIDE 0.9% 100 ML IV SCH ×2 (00:50→12:31)
[2018-12-27] MEDS: ZIPRASIDONE 20 MG/1 ML VIAL IM PRN (05:18)
[2018-12-27 05:35] LABS: Basophils % 0.2 % (0.0-0.8); Eosinophils # 0.1 10*3/uL (0.0-0.87); Eosinophils % 0.9 % (0.00-10.9); Hematocrit 22.8 VOL% (42.0-52.0); Hemoglobin 6.6 GM/DL (14.0-18.0); Immature Granulocytes % 1.7 %; Immature Granulocytes Absolute 0.17 #; Lymphocytes # 1.3 10*3/uL (1.4-4.0); Lymphocytes % 13.1 % (21.2-54.2); Mean Corpuscular HGB Conc 28.9 GM/DL (32-36); Mean Corpuscular Hemoglobin 24 PG (27-34); Mean Corpuscular Volume 84.1 FL (87-102); Mean Platelet Volume 9.9 FL (9.6-12.0); Monocytes # 1.1 10*3/uL (0.11-0.8); Monocytes % 10.9 % (1.7-12.7); Neutrophils # 7.5 10*3/uL (1.4-7.4); Neutrophils % 73.2 % (38.7-73.9); Platelet Count 143 T/CUMM (130-400); Red Blood Count 2.71 MC/CUMM (3.8-5.5); Red Cell Distribution Width 16.3 % (9.3-17.3); White Blood Count 10.2 T/CUMM (4-12)
[2018-12-27] MEDS: INSULIN LISPRO 100 UNIT/ML SUBCUT SCH ×5 (06:27→23:19)
[2018-12-27 06:49] LABS: Alanine Aminotransferase < 9 U/L (16-61); Albumin 1.8 G/DL (3.4-5.0); Alkaline Phosphatase 57 U/L (45-117); Aspartate Amino Transferase 24 U/L (0-37); Bilirubin,Total < 0.39 MG/DL (0.2-1.0); Blood Urea Nitrogen 48 MG/DL (7-18); Calcium 6.8 MG/DL (8.5-10.1); Glucose 161 MG/DL (74-106); Hypochromasia 2+; Microcytosis 1+; Osmolality,Calculated 288.8 MOS/KG (273-304); Ovalocytes Slight; Polychromasia Slight; Potassium 3.3 MMOL/L (3.5-5.1); Sodium 137 MMOL/L (136-145); Total Protein 5.4 G/DL (6.4-8.3)
[2018-12-27 06:50] LABS: Platelet Estimate Adequate; Target Cells Slight
[2018-12-27] MEDS ORDERED: SODIUM CHLORIDE 0.9% 1,000 ML IV PRN (07:27)
[2018-12-27] MEDS: ATORVASTATIN 10 MG TABLET PO SCH (08:09)
[2018-12-27] MEDS: ASPIRIN EC 81 MG TABLET PO SCH (08:09)
[2018-12-27] MEDS: LANSOPRAZOLE ODT 30 MG TABLET PER TUBE SCH (08:10)
[2018-12-27] MEDS: CARVEDILOL 6.25 MG TABLET PO SCH ×2 (08:10→16:17)
[2018-12-27] MEDS: amLODIPine 5 MG TABLET PO SCH (08:10)
[2018-12-27] MEDS: TAMSULOSIN 0.4 MG CAPSULE PO SCH ×2 (08:10→21:25)
[2018-12-27] MEDS: SEVELAMER CARBONATE POWDER 2.4 GM PACK PER TUBE SCH ×3 (08:10→21:24)
[2018-12-27] MEDS: ACETAMINOPHEN 325 MG TABLET PO PRN (09:48)
[2018-12-27 15:06] LABS: Hematocrit 26.5 VOL% (42.0-52.0); Hemoglobin 7.8 GM/DL (14.0-18.0)
[2018-12-27] MEDS: INSULIN GLARGINE 100 UNIT/ML SUBCUT SCH (21:25)
[2018-12-28] MEDS: PIPERACILLIN/TAZOBACTAM 3,375 MG in SODIUM CHLORIDE 0.9% 100 ML IV SCH ×2 (01:50→12:45)
[2018-12-28] MEDS: INSULIN LISPRO 100 UNIT/ML SUBCUT SCH ×3 (06:05→17:37)
[2018-12-28] MEDS ORDERED: DEXTROSE 50% 25 GM/50 ML SYRINGE IV PRN (06:30)
[2018-12-28 06:54] LABS: Calcium 7.5 MG/DL (8.5-10.1); Osmolality,Calculated 285.8 MOS/KG (273-304); Potassium 2.9 MMOL/L (3.5-5.1)
[2018-12-28] MEDS: CARVEDILOL 6.25 MG TABLET PO SCH ×2 (08:00→17:45)
[2018-12-28 08:15] LABS: Calcium 7.3 MG/DL (8.5-10.1); Osmolality,Calculated 286.8 MOS/KG (273-304); Potassium 2.9 MMOL/L (3.5-5.1)
[2018-12-28] MEDS: LANSOPRAZOLE ODT 30 MG TABLET PER TUBE SCH (09:00)
[2018-12-28] MEDS: ASPIRIN EC 81 MG TABLET PO SCH (09:00)
[2018-12-28] MEDS: ATORVASTATIN 10 MG TABLET PO SCH (09:00)
[2018-12-28] MEDS: amLODIPine 5 MG TABLET PO SCH (09:00)
[2018-12-28] MEDS: SEVELAMER CARBONATE POWDER 2.4 GM PACK PER TUBE SCH ×3 (09:00→20:34)
[2018-12-28] MEDS: TAMSULOSIN 0.4 MG CAPSULE PO SCH ×2 (09:00→20:33)
[2018-12-28] MEDS ORDERED: REGADENOSON 0.4 MG/5 ML SYRINGE IV ONE (10:26)
[2018-12-28] MEDS: ONDANSETRON 4 MG/2 ML VIAL IV PRN (12:05)
[2018-12-28] MEDS: INSULIN GLARGINE 100 UNIT/ML SUBCUT SCH (21:31)
[2018-12-29] MEDS: INSULIN LISPRO 100 UNIT/ML SUBCUT SCH ×5 (01:45→22:05)
[2018-12-29] MEDS: PIPERACILLIN/TAZOBACTAM 3,375 MG in SODIUM CHLORIDE 0.9% 100 ML IV SCH ×2 (02:25→13:10)
[2018-12-29 05:38] LABS: Basophils % 0.4 % (0.0-0.8); Eosinophils # 0.3 10*3/uL (0.0-0.87); Eosinophils % 2.9 % (0.00-10.9); Hematocrit 27.3 VOL% (42.0-52.0); Hemoglobin 8.2 GM/DL (14.0-18.0); Immature Granulocytes % 1.5 %; Immature Granulocytes Absolute 0.14 #; Lymphocytes # 1.2 10*3/uL (1.4-4.0); Lymphocytes % 12.5 % (21.2-54.2); Mean Corpuscular Hemoglobin 26 PG (27-34); Mean Corpuscular Volume 84.8 FL (87-102); Monocytes % 10.9 % (1.7-12.7); Neutrophils # 6.7 10*3/uL (1.4-7.4); Neutrophils % 71.8 % (38.7-73.9); Platelet Count 158 T/CUMM (130-400); Red Blood Count 3.22 MC/CUMM (3.8-5.5); Red Cell Distribution Width 15.8 % (9.3-17.3); White Blood Count 9.4 T/CUMM (4-12)
[2018-12-29 05:51] LABS: Calcium 7.6 MG/DL (8.5-10.1); Potassium 3.4 MMOL/L (3.5-5.1)
[2018-12-29] MEDS: ATORVASTATIN 10 MG TABLET PO SCH (08:10)
[2018-12-29] MEDS: ASPIRIN EC 81 MG TABLET PO SCH (08:10)
[2018-12-29] MEDS: TAMSULOSIN 0.4 MG CAPSULE PO SCH ×2 (08:10→22:04)
[2018-12-29] MEDS: CARVEDILOL 6.25 MG TABLET PO SCH ×2 (08:10→16:54)
[2018-12-29] MEDS: amLODIPine 5 MG TABLET PO SCH (08:10)
[2018-12-29] MEDS: SEVELAMER CARBONATE 800 MG TABLET PO SCH ×3 (08:10→22:04)
[2018-12-29] MEDS: PANTOPRAZOLE 40 MG TABLET PO SCH (08:10)
[2018-12-29] MEDS: INSULIN GLARGINE 100 UNIT/ML SUBCUT SCH (22:04)
[2018-12-30] MEDS: PIPERACILLIN/TAZOBACTAM 3,375 MG in SODIUM CHLORIDE 0.9% 100 ML IV SCH (01:35)
[2018-12-30 05:50] LABS: Basophils % 0.4 % (0.0-0.8); Eosinophils # 0.3 10*3/uL (0.0-0.87); Eosinophils % 3.5 % (0.00-10.9); Hematocrit 26.9 VOL% (42.0-52.0); Hemoglobin 7.9 GM/DL (14.0-18.0); Immature Granulocytes % 1.1 %; Immature Granulocytes Absolute 0.08 #; Lymphocytes # 1.3 10*3/uL (1.4-4.0); Lymphocytes % 17.6 % (21.2-54.2); Mean Corpuscular HGB Conc 29.4 GM/DL (32-36); Mean Corpuscular Hemoglobin 25 PG (27-34); Mean Corpuscular Volume 84.9 FL (87-102); Mean Platelet Volume 10.2 FL (9.6-12.0); Monocytes % 14.5 % (1.7-12.7); Neutrophils # 4.5 10*3/uL (1.4-7.4); Neutrophils % 62.9 % (38.7-73.9); Platelet Count 170 T/CUMM (130-400); Red Blood Count 3.17 MC/CUMM (3.8-5.5); Red Cell Distribution Width 15.8 % (9.3-17.3); White Blood Count 7.2 T/CUMM (4-12)
[2018-12-30 06:05] LABS: Calcium 7.8 MG/DL (8.5-10.1); Osmolality,Calculated 286.5 MOS/KG (273-304); Potassium 3.3 MMOL/L (3.5-5.1)
[2018-12-30] MEDS: INSULIN LISPRO 100 UNIT/ML SUBCUT SCH ×4 (07:57→21:02)
[2018-12-30] MEDS: CARVEDILOL 6.25 MG TABLET PO SCH ×2 (08:08→16:30)
[2018-12-30] MEDS: ASPIRIN EC 81 MG TABLET PO SCH (08:08)
[2018-12-30] MEDS: PANTOPRAZOLE 40 MG TABLET PO SCH (08:08)
[2018-12-30] MEDS: amLODIPine 5 MG TABLET PO SCH (08:08)
[2018-12-30] MEDS: SEVELAMER CARBONATE 800 MG TABLET PO SCH ×2 (08:08→16:30)
[2018-12-30] MEDS: ATORVASTATIN 10 MG TABLET PO SCH (08:08)
[2018-12-30] MEDS: TAMSULOSIN 0.4 MG CAPSULE PO SCH ×2 (08:08→21:02)
[2018-12-30] MEDS: LACTOBACILLUS RHAMNOSUS GG CAPSULE PO SCH ×2 (08:54→21:01)
[2018-12-30] MEDS: ceFAZolin 1,000 MG in SYRINGE 1 EACH IV SCH (16:30)
[2018-12-30] MEDS: INSULIN GLARGINE 100 UNIT/ML SUBCUT SCH (21:02)
[2018-12-31 07:14] LABS: Basophils % 0.5 % (0.0-0.8); Eosinophils # 0.2 10*3/uL (0.0-0.87); Hemoglobin 8.9 GM/DL (14.0-18.0); Immature Granulocytes % 0.7 %; Immature Granulocytes Absolute 0.06 #; Lymphocytes # 1.4 10*3/uL (1.4-4.0); Lymphocytes % 17.1 % (21.2-54.2); Mean Corpuscular HGB Conc 29.7 GM/DL (32-36); Mean Corpuscular Hemoglobin 25 PG (27-34); Mean Corpuscular Volume 85.2 FL (87-102); Mean Platelet Volume 10.1 FL (9.6-12.0); Monocytes # 1.4 10*3/uL (0.11-0.8); Monocytes % 17.2 % (1.7-12.7); Neutrophils # 4.9 10*3/uL (1.4-7.4); Neutrophils % 61.5 % (38.7-73.9); Platelet Count 181 T/CUMM (130-400); Red Blood Count 3.52 MC/CUMM (3.8-5.5); Red Cell Distribution Width 15.8 % (9.3-17.3)
[2018-12-31 07:35] LABS: Alanine Aminotransferase < 6 U/L (16-61); Albumin 1.8 G/DL (3.4-5.0); Alkaline Phosphatase 76 U/L (45-117); Aspartate Amino Transferase 14 U/L (0-37); Bilirubin,Total < 0.39 MG/DL (0.2-1.0); Blood Urea Nitrogen 41 MG/DL (7-18); Glucose 60 MG/DL (74-106); Osmolality,Calculated 284.5 MOS/KG (273-304); Potassium 3.4 MMOL/L (3.5-5.1); Sodium 139 MMOL/L (136-145); Total Protein 6.4 G/DL (6.4-8.3)
[2018-12-31 07:40] LABS: Anisocytosis 1+; Band Neutrophils 6 % (0-10); Eosinophils 5 % (0-10); Lymphocytes 11 % (20-55); Platelet Estimate Normal; Segmented Neutrophils 66 % (50-85); Total Cells Counted 100
[2018-12-31] MEDS: SEVELAMER CARBONATE 800 MG TABLET PO SCH ×3 (08:08→17:10)
[2018-12-31] MEDS: CARVEDILOL 6.25 MG TABLET PO SCH (08:09)
[2018-12-31] MEDS: ATORVASTATIN 10 MG TABLET PO SCH (08:09)
[2018-12-31] MEDS: INSULIN LISPRO 100 UNIT/ML SUBCUT SCH ×4 (08:09→20:51)
[2018-12-31] MEDS: TAMSULOSIN 0.4 MG CAPSULE PO SCH ×2 (08:09→20:51)
[2018-12-31] MEDS: amLODIPine 5 MG TABLET PO SCH (08:09)
[2018-12-31] MEDS: PANTOPRAZOLE 40 MG TABLET PO SCH (08:09)
[2018-12-31] MEDS: ASPIRIN EC 81 MG TABLET PO SCH (08:09)
[2018-12-31] MEDS: LACTOBACILLUS RHAMNOSUS GG CAPSULE PO SCH ×2 (08:09→20:51)
[2018-12-31] MEDS ORDERED: CARVEDILOL 6.25 MG TABLET PO SCH (10:29)
[2018-12-31] MEDS ORDERED: methylPREDNISolone SOD SUC 125 MG/2 ML VIAL ONE (13:06)
[2018-12-31] MEDS ORDERED: diphenhydrAMINE 50 MG/1 ML VIAL ONE (13:06)
[2018-12-31] MEDS ORDERED: methylPREDNISolone SOD SUC 125 MG/2 ML VIAL IV ONE (13:22)
[2018-12-31] MEDS ORDERED: diphenhydrAMINE 50 MG/1 ML VIAL IV ONE (13:22)
[2018-12-31] MEDS: ceFAZolin 1,000 MG in SYRINGE 1 EACH IV SCH (17:09)
[2018-12-31] MEDS: INSULIN GLARGINE 100 UNIT/ML SUBCUT SCH (20:51)
[2019-01-01 05:55] LABS: Basophils % 0.2 % (0.0-0.8); Hematocrit 27.5 VOL% (42.0-52.0); Hemoglobin 8.2 GM/DL (14.0-18.0); Immature Granulocytes % 1.1 %; Immature Granulocytes Absolute 0.06 #; Lymphocytes # 0.6 10*3/uL (1.4-4.0); Lymphocytes % 11.8 % (21.2-54.2); Mean Corpuscular HGB Conc 29.8 GM/DL (32-36); Mean Corpuscular Hemoglobin 25 PG (27-34); Mean Corpuscular Volume 83.3 FL (87-102); Mean Platelet Volume 10.5 FL (9.6-12.0); Monocytes # 0.3 10*3/uL (0.11-0.8); Monocytes % 6.3 % (1.7-12.7); Neutrophils # 4.4 10*3/uL (1.4-7.4); Neutrophils % 80.6 % (38.7-73.9); Platelet Count 217 T/CUMM (130-400); Red Cell Distribution Width 15.4 % (9.3-17.3); White Blood Count 5.4 T/CUMM (4-12)
[2019-01-01 06:19] LABS: Alanine Aminotransferase < 9 U/L (16-61); Albumin 2.2 G/DL (3.4-5.0); Alkaline Phosphatase 84 U/L (45-117); Aspartate Amino Transferase 16 U/L (0-37); Blood Urea Nitrogen 30 MG/DL (7-18); Calcium 8.3 MG/DL (8.5-10.1); Glucose 260 MG/DL (74-106); Osmolality,Calculated 282.2 MOS/KG (273-304); Potassium 3.9 MMOL/L (3.5-5.1); Sodium 134 MMOL/L (136-145); Total Protein 6.8 G/DL (6.4-8.3)
[2019-01-01] MEDS: INSULIN LISPRO 100 UNIT/ML SUBCUT SCH ×4 (09:21→21:51)
[2019-01-01] MEDS: ATORVASTATIN 10 MG TABLET PO SCH (09:22)
[2019-01-01] MEDS: CARVEDILOL 25 MG TABLET PO SCH ×2 (09:22→21:51)
[2019-01-01] MEDS: ASPIRIN EC 81 MG TABLET PO SCH (09:22)
[2019-01-01] MEDS: PANTOPRAZOLE 40 MG TABLET PO SCH (09:22)
[2019-01-01] MEDS: LACTOBACILLUS RHAMNOSUS GG CAPSULE PO SCH ×2 (09:22→21:54)
[2019-01-01] MEDS: TAMSULOSIN 0.4 MG CAPSULE PO SCH ×2 (09:22→21:51)
[2019-01-01] MEDS: SEVELAMER CARBONATE 800 MG TABLET PO SCH ×3 (09:22→17:26)
[2019-01-01] MEDS: amLODIPine 5 MG TABLET PO SCH (09:22)
[2019-01-01] MEDS: INSULIN GLARGINE 100 UNIT/ML SUBCUT SCH (21:51)
[2019-01-02 06:16] LABS: Basophils % 0.5 % (0.0-0.8); Eosinophils # 0.1 10*3/uL (0.0-0.87); Eosinophils % 0.8 % (0.00-10.9); Hematocrit 28.1 VOL% (42.0-52.0); Hemoglobin 8.3 GM/DL (14.0-18.0); Immature Granulocytes % 0.7 %; Immature Granulocytes Absolute 0.06 #; Lymphocytes # 1.5 10*3/uL (1.4-4.0); Lymphocytes % 18.1 % (21.2-54.2); Mean Corpuscular HGB Conc 29.5 GM/DL (32-36); Mean Corpuscular Hemoglobin 25 PG (27-34); Mean Corpuscular Volume 85.2 FL (87-102); Mean Platelet Volume 10.2 FL (9.6-12.0); Monocytes # 0.9 10*3/uL (0.11-0.8); Monocytes % 10.6 % (1.7-12.7); Neutrophils # 5.9 10*3/uL (1.4-7.4); Neutrophils % 69.3 % (38.7-73.9); Platelet Count 231 T/CUMM (130-400); Red Cell Distribution Width 15.9 % (9.3-17.3); White Blood Count 8.5 T/CUMM (4-12)
[2019-01-02 06:44] LABS: Alanine Aminotransferase < 6 U/L (16-61); Alkaline Phosphatase 70 U/L (45-117); Aspartate Amino Transferase 10 U/L (0-37); Bilirubin,Total < 0.39 MG/DL (0.2-1.0); Blood Urea Nitrogen 39 MG/DL (7-18); Glucose 101 MG/DL (74-106); Osmolality,Calculated 285.5 MOS/KG (273-304); Potassium 3.9 MMOL/L (3.5-5.1); Sodium 139 MMOL/L (136-145); Total Protein 6.3 G/DL (6.4-8.3)
[2019-01-02] MEDS: PANTOPRAZOLE 40 MG TABLET PO SCH (09:09)
[2019-01-02] MEDS: LACTOBACILLUS RHAMNOSUS GG CAPSULE PO SCH ×2 (09:09→21:42)
[2019-01-02] MEDS: SEVELAMER CARBONATE 800 MG TABLET PO SCH ×3 (09:09→17:46)
[2019-01-02] MEDS: TAMSULOSIN 0.4 MG CAPSULE PO SCH ×2 (09:09→21:40)
[2019-01-02] MEDS: ASPIRIN EC 81 MG TABLET PO SCH (09:09)
[2019-01-02] MEDS: amLODIPine 5 MG TABLET PO SCH (09:10)
[2019-01-02] MEDS: ATORVASTATIN 10 MG TABLET PO SCH (09:10)
[2019-01-02] MEDS: CARVEDILOL 25 MG TABLET PO SCH ×2 (09:10→21:40)
[2019-01-02] MEDS: INSULIN LISPRO 100 UNIT/ML SUBCUT SCH ×4 (09:12→21:40)
[2019-01-02] MEDS: INSULIN GLARGINE 100 UNIT/ML SUBCUT SCH (21:40)
[2019-01-03 05:18] LABS: Basophils # 0.1 10*3/uL (0.0-0.2); Basophils % 0.8 % (0.0-0.8); Eosinophils # 0.2 10*3/uL (0.0-0.87); Eosinophils % 2.5 % (0.00-10.9); Hematocrit 27.6 VOL% (42.0-52.0); Hemoglobin 8.1 GM/DL (14.0-18.0); Immature Granulocytes % 0.5 %; Immature Granulocytes Absolute 0.03 #; Lymphocytes # 1.2 10*3/uL (1.4-4.0); Lymphocytes % 19.3 % (21.2-54.2); Mean Corpuscular HGB Conc 29.3 GM/DL (32-36); Mean Corpuscular Hemoglobin 25 PG (27-34); Monocytes # 0.7 10*3/uL (0.11-0.8); Monocytes % 11.3 % (1.7-12.7); Neutrophils % 65.6 % (38.7-73.9); Platelet Count 239 T/CUMM (130-400); Red Blood Count 3.21 MC/CUMM (3.8-5.5); Red Cell Distribution Width 15.8 % (9.3-17.3); White Blood Count 6.1 T/CUMM (4-12)
[2019-01-03 05:42] LABS: Alanine Aminotransferase < 9 U/L (16-61); Albumin 2.1 G/DL (3.4-5.0); Alkaline Phosphatase 73 U/L (45-117); Aspartate Amino Transferase 9 U/L (0-37); Blood Urea Nitrogen 25 MG/DL (7-18); Calcium 7.9 MG/DL (8.5-10.1); Glucose 226 MG/DL (74-106); Osmolality,Calculated 289.4 MOS/KG (273-304); Potassium 3.8 MMOL/L (3.5-5.1); Sodium 140 MMOL/L (136-145); Total Protein 6.1 G/DL (6.4-8.3)
[2019-01-03] MEDS: amLODIPine 5 MG TABLET PO SCH (09:23)
[2019-01-03] MEDS: TAMSULOSIN 0.4 MG CAPSULE PO SCH ×2 (09:23→21:15)
[2019-01-03] MEDS: ASPIRIN EC 81 MG TABLET PO SCH (09:23)
[2019-01-03] MEDS: CARVEDILOL 25 MG TABLET PO SCH ×2 (09:23→21:15)
[2019-01-03] MEDS: ATORVASTATIN 10 MG TABLET PO SCH (09:23)
[2019-01-03] MEDS: LACTOBACILLUS RHAMNOSUS GG CAPSULE PO SCH ×2 (09:23→21:15)
[2019-01-03] MEDS: SEVELAMER CARBONATE 800 MG TABLET PO SCH ×3 (09:23→17:08)
[2019-01-03] MEDS: PANTOPRAZOLE 40 MG TABLET PO SCH (09:23)
[2019-01-03] MEDS: INSULIN LISPRO 100 UNIT/ML SUBCUT SCH ×4 (09:29→22:58)
[2019-01-03] MEDS: INSULIN GLARGINE 100 UNIT/ML SUBCUT SCH (22:58)
[2019-01-04 06:16] LABS: Basophils # 0.1 10*3/uL (0.0-0.2); Basophils % 0.7 % (0.0-0.8); Eosinophils # 0.2 10*3/uL (0.0-0.87); Eosinophils % 2.6 % (0.00-10.9); Hematocrit 28.6 VOL% (42.0-52.0); Hemoglobin 8.4 GM/DL (14.0-18.0); Immature Granulocytes % 0.3 %; Immature Granulocytes Absolute 0.02 #; Lymphocytes # 1.4 10*3/uL (1.4-4.0); Lymphocytes % 19.7 % (21.2-54.2); Mean Corpuscular HGB Conc 29.4 GM/DL (32-36); Mean Corpuscular Hemoglobin 25 PG (27-34); Mean Corpuscular Volume 85.6 FL (87-102); Mean Platelet Volume 10.5 FL (9.6-12.0); Monocytes # 0.7 10*3/uL (0.11-0.8); Monocytes % 9.3 % (1.7-12.7); Neutrophils # 4.9 10*3/uL (1.4-7.4); Neutrophils % 67.4 % (38.7-73.9); Platelet Count 243 T/CUMM (130-400); Red Blood Count 3.34 MC/CUMM (3.8-5.5); Red Cell Distribution Width 15.9 % (9.3-17.3); White Blood Count 7.3 T/CUMM (4-12)
[2019-01-04 06:34] LABS: Alanine Aminotransferase 9 U/L (16-61); Albumin 2.1 G/DL (3.4-5.0); Alkaline Phosphatase 73 U/L (45-117); Aspartate Amino Transferase 12 U/L (0-37); Bilirubin,Total < 0.39 MG/DL (0.2-1.0); Blood Urea Nitrogen 32 MG/DL (7-18); Glucose 131 MG/DL (74-106); Osmolality,Calculated 289.3 MOS/KG (273-304); Potassium 3.9 MMOL/L (3.5-5.1); Sodium 141 MMOL/L (136-145); Total Protein 6.3 G/DL (6.4-8.3)
[2019-01-04] MEDS: INSULIN LISPRO 100 UNIT/ML SUBCUT SCH ×3 (08:27→15:36)
[2019-01-04] MEDS ORDERED: methylPREDNISolone SOD SUC 125 MG/2 ML VIAL ONE (09:13)
[2019-01-04] MEDS ORDERED: diphenhydrAMINE 50 MG/1 ML VIAL ONE (09:14)
[2019-01-04] MEDS ORDERED: diphenhydrAMINE 50 MG/1 ML VIAL IV ONE (09:15)
[2019-01-04] MEDS ORDERED: methylPREDNISolone SOD SUC 125 MG/2 ML VIAL IV ONE (09:15)
[2019-01-04] MEDS ORDERED: fentaNYL 100 MCG/2 ML VIAL ONE (09:36)
[2019-01-04] MEDS ORDERED: MIDAZOLAM 2 MG/2 ML VIAL ONE (09:37)
[2019-01-04] MEDS ORDERED: fentaNYL 100 MCG/2 ML VIAL IV ONE (09:42)
[2019-01-04] MEDS ORDERED: ONDANSETRON 4 MG/2 ML VIAL IV ONE (09:42)
[2019-01-04] MEDS ORDERED: MIDAZOLAM 2 MG/2 ML VIAL IV ONE (09:42)
[2019-01-04] MEDS: SEVELAMER CARBONATE 800 MG TABLET PO SCH ×3 (10:31→13:06)
[2019-01-04] MEDS: ASPIRIN EC 81 MG TABLET PO SCH (10:33)
[2019-01-04] MEDS: CARVEDILOL 25 MG TABLET PO SCH (10:33)
[2019-01-04] MEDS: TAMSULOSIN 0.4 MG CAPSULE PO SCH (10:34)
[2019-01-04] MEDS: LACTOBACILLUS RHAMNOSUS GG CAPSULE PO SCH (10:35)
[2019-01-04] MEDS: amLODIPine 5 MG TABLET PO SCH (10:36)
[2019-01-04] MEDS: ATORVASTATIN 10 MG TABLET PO SCH (10:36)
[2019-01-04] MEDS: PANTOPRAZOLE 40 MG TABLET PO SCH (10:55)
[2019-01-04 15:24] VITALS: BP 139/93
== END 2019-01-04 16:50 | disposition home health service (06) | DRG 871 ==
LOC: SUATTDRO 20:36 → N.CC 20:36 → N.TELEN 12-18 16:34 → N.ICU 12-19 11:45 → N.5E 12-29 15:59
PROVIDERS: ADMIT Internal Medicine; ATTEND Internal Medicine

== ENCOUNTER 2019-03-17 18:18 | Observation (INO) ==
[2019-03-17 18:56] LABS: Basophils # 0.1 10*3/uL (0.0-0.2); Basophils % 0.5 % (0.0-0.8); Eosinophils # 0.2 10*3/uL (0.0-0.87); Eosinophils % 1.8 % (0.00-10.9); Hematocrit 37.8 VOL% (42.0-52.0); Hemoglobin 11.5 GM/DL (14.0-18.0); Immature Granulocytes % 0.4 %; Immature Granulocytes Absolute 0.04 #; Lymphocytes # 1.1 10*3/uL (1.4-4.0); Mean Corpuscular HGB Conc 30.4 GM/DL (32-36); Mean Corpuscular Volume 94.3 FL (87-102); Mean Platelet Volume 9.9 FL (9.6-12.0); Monocytes % 9.5 % (1.7-12.7); Neutrophils % 75.8 % (38.7-73.9); Platelet Count 142 T/CUMM (130-400); Red Blood Count 4.01 MC/CUMM (3.8-5.5); Red Cell Distribution Width 15.4 % (9.3-17.3); White Blood Count 9.1 T/CUMM (4-12)
[2019-03-17 19:06] LABS: INR 1.1; PT Patient Result 11.5 SECS; Partial Thromboplastin Time 29.7 SECS (0-40)
[2019-03-17 19:17] LABS: Albumin 3.2 G/DL (3.4-5.0); Bilirubin,Total 0.4 MG/DL (0.2-1.0); Calcium 8.7 MG/DL (8.5-10.1); Osmolality,Calculated 284.1 MOS/KG (273-304); Total Protein 7.3 G/DL (6.4-8.3)
[2019-03-17] MEDS ORDERED: cefTRIAXone 1,000 MG in SODIUM CHLORIDE 0.9% 100 ML IV STA (20:09)
[2019-03-17 20:57] LABS: Apearance,Urine CLOUDY (Clear); Bilirubin,Urine Negative (Negative); Blood, Urine Moderate mg/dL (Negative); Glucose,Urine (UA) 150 mg/dL (Negative); Ketones,Urine Negative (Negative); Nitrite,Urine Negative (Negative); Protein,Urine >=500 MG/DL; RBC,Urine 135 /HPF (0-4); Urine Color Yellow (Yellow); Urine Specific Gravity 1.018 (1.001-1.035); Urine Urobilinogen < 2.0 EU/DL (0.2-1.0); WBC,Urine 2420 /HPF (0-6)
[2019-03-18] MEDS ORDERED: ONDANSETRON 4 MG/2 ML VIAL IV PRN (00:10)
[2019-03-18] MEDS ORDERED: GLUCAGON 1 MG VIAL IM PRN (00:10)
[2019-03-18] MEDS ORDERED: HYDROmorphone 2 MG/1 ML VIAL IV PRN (00:10)
[2019-03-18] MEDS ORDERED: ACETAMINOPHEN 325 MG TABLET PO PRN (00:10)
[2019-03-18] MEDS ORDERED: oxyCODONE IR 5 MG TABLET PO PRN (00:10)
[2019-03-18] MEDS ORDERED: DEXTROSE 50% 25 GM/50 ML VIAL IV PRN (00:10)
[2019-03-18] MEDS ORDERED: PROMETHAZINE 25 MG/1 ML VIAL IM PRN (00:10)
[2019-03-18] MEDS: SODIUM CHLORIDE 0.9% 1,000 ML IV SCH ×3 (00:46→21:47)
[2019-03-18] MEDS: INSULIN REGULAR 100 UNIT/ML SUBCUT SCH ×4 (00:46→18:44)
[2019-03-18 05:12] LABS: Basophils # 0.1 10*3/uL (0.0-0.2); Basophils % 0.8 % (0.0-0.8); Eosinophils # 0.2 10*3/uL (0.0-0.87); Eosinophils % 2.6 % (0.00-10.9); Hematocrit 36.5 VOL% (42.0-52.0); Hemoglobin 11.1 GM/DL (14.0-18.0); Immature Granulocytes % 0.4 %; Immature Granulocytes Absolute 0.03 #; Lymphocytes # 1.3 10*3/uL (1.4-4.0); Mean Corpuscular HGB Conc 30.4 GM/DL (32-36); Mean Corpuscular Volume 94.1 FL (87-102); Mean Platelet Volume 10.2 FL (9.6-12.0); Monocytes % 12.4 % (1.7-12.7); Neutrophils % 65.8 % (38.7-73.9); Platelet Count 142 T/CUMM (130-400); Red Blood Count 3.88 MC/CUMM (3.8-5.5); Red Cell Distribution Width 15.4 % (9.3-17.3); White Blood Count 7.4 T/CUMM (4-12)
[2019-03-18 05:36] LABS: Calcium 8.5 MG/DL (8.5-10.1); Osmolality,Calculated 283.8 MOS/KG (273-304)
[2019-03-18 05:41] LABS: Apearance,Urine CLOUDY (Clear); Bilirubin,Urine Negative (Negative); Blood, Urine Large mg/dL (Negative); Glucose,Urine (UA) 150 mg/dL (Negative); Ketones,Urine Negative (Negative); Nitrite,Urine Negative (Negative); Protein,Urine >=500 MG/DL; RBC,Urine 962 /HPF (0-4); Urine Color Yellow (Yellow); Urine Specific Gravity 1.018 (1.001-1.035); Urine Urobilinogen < 2.0 EU/DL (0.2-1.0); WBC,Urine 6594 /HPF (0-6)
[2019-03-18] MEDS ORDERED: fentaNYL 100 MCG/2 ML VIAL IV ONE (10:16)
[2019-03-18] MEDS ORDERED: MIDAZOLAM 2 MG/2 ML VIAL IV ONE (10:16)
[2019-03-18] MEDS: GABAPENTIN 300 MG CAPSULE PO SCH ×3 (11:16→21:48)
[2019-03-18] MEDS: INSULIN ASPART PROTAMINE/ASPART 70/30 100 UNIT/ML SUBCUT SCH (11:16)
[2019-03-18] MEDS: TAMSULOSIN 0.4 MG CAPSULE PO SCH ×2 (11:16→21:48)
[2019-03-18] MEDS ORDERED: fentaNYL 100 MCG/2 ML VIAL ONE (12:42)
[2019-03-18] MEDS ORDERED: MIDAZOLAM 2 MG/2 ML VIAL ONE (12:42)
[2019-03-18] MEDS ORDERED: DIAZEPAM 5 MG TABLET PO ONE (12:45)
[2019-03-18] MEDS ORDERED: SULFAMETHOX/TRIMETHOPRIM 800-160 MG TABLET PO SCH (21:00)
[2019-03-18] MEDS ORDERED: cefTRIAXone 1,000 MG in SYRINGE 1 EACH IV SCH (21:00)
[2019-03-19] MEDS: INSULIN REGULAR 100 UNIT/ML SUBCUT SCH ×3 (00:37→12:47)
[2019-03-19 05:11] LABS: Basophils # 0.1 10*3/uL (0.0-0.2); Eosinophils # 0.3 10*3/uL (0.0-0.87); Hematocrit 37.5 VOL% (42.0-52.0); Hemoglobin 11.3 GM/DL (14.0-18.0); Immature Granulocytes % 0.2 %; Immature Granulocytes Absolute 0.01 #; Lymphocytes % 19.5 % (21.2-54.2); Mean Corpuscular HGB Conc 30.1 GM/DL (32-36); Mean Corpuscular Volume 96.9 FL (87-102); Mean Platelet Volume 10.5 FL (9.6-12.0); Monocytes % 13.7 % (1.7-12.7); Neutrophils % 59.6 % (38.7-73.9); Platelet Count 135 T/CUMM (130-400); Red Blood Count 3.87 MC/CUMM (3.8-5.5); Red Cell Distribution Width 15.2 % (9.3-17.3)
[2019-03-19 05:23] LABS: Calcium 8.4 MG/DL (8.5-10.1)
[2019-03-19] MEDS ORDERED: HEPARIN 10,000 UNIT/10 ML VIAL SUBCUT PRN (06:46)
[2019-03-19 07:56] VITALS: BP 137/79
[2019-03-19] MEDS: TAMSULOSIN 0.4 MG CAPSULE PO SCH (09:10)
[2019-03-19] MEDS: GABAPENTIN 300 MG CAPSULE PO SCH (09:11)
[2019-03-19] MEDS: SODIUM CHLORIDE 0.9% 1,000 ML IV SCH (09:11)
[2019-03-19] MEDS: INSULIN ASPART PROTAMINE/ASPART 70/30 100 UNIT/ML SUBCUT SCH ×2 (09:13→09:44)
[2019-03-24] MEDS ORDERED: ERGOCALCIFEROL 50,000 UNIT CAPSULE PO SCH (09:00)
== END 2019-03-19 14:14 | disposition home or self-care (01) ==
LOC: N.EDINP 18:18 → N.ED 18:18 → N.5E 23:30
PROVIDERS: ADMIT Urology; ATTEND Urology

== ENCOUNTER 2020-01-15 14:46 | Inpatient (IN) ==
[2020-01-15 16:59] LABS: Basophils % 0.2 % (0.0-0.8); Hematocrit 33.2 VOL% (42.0-52.0); Hemoglobin 10.5 GM/DL (14.0-18.0); Immature Granulocytes % 1.6 %; Immature Granulocytes Absolute 0.15 #; Lymphocytes # 0.2 10*3/uL (1.4-4.0); Lymphocytes % 2.2 % (21.2-54.2); Mean Corpuscular HGB Conc 31.6 GM/DL (32-36); Mean Corpuscular Volume 88.5 FL (87-102); Mean Platelet Volume 9.9 FL (9.6-12.0); Monocytes % 2.1 % (1.7-12.7); Neutrophils % 93.9 % (38.7-73.9); Platelet Count 87 T/CUMM (130-400); Red Blood Count 3.75 MC/CUMM (3.8-5.5); Red Cell Distribution Width 15.9 % (9.3-17.3); White Blood Count 9.2 T/CUMM (4-12)
[2020-01-15] MEDS ORDERED: VANCOMYCIN INJ 1,000 MG in SODIUM CHLORIDE 0.9% 250 ML IV STA (17:06)
[2020-01-15] MEDS ORDERED: cefTRIAXone 1,000 MG in SODIUM CHLORIDE 0.9% 100 ML IV STA (17:10)
[2020-01-15] MEDS ORDERED: SODIUM CHLORIDE 0.9% 250 ML IV STA ×2 (17:11→17:55)
[2020-01-15 18:01] LABS: Anisocytosis 2+; Hypochromasia 2+; Lymphocytes 2 % (20-55); Microcytosis 2+; Platelet Estimate Adequate; Segmented Neutrophils 94 % (50-85); Total Cells Counted 100
[2020-01-15] MEDS ORDERED: SODIUM CHLORIDE 0.9% 1,000 ML IV STA (18:06)
[2020-01-15 18:19] LABS: Alanine Aminotransferase 12 U/L (16-61); Albumin 2.8 G/DL (3.4-5.0); Alkaline Phosphatase 111 U/L (45-117); Aspartate Amino Transferase 30 U/L (0-37); Blood Urea Nitrogen 36 MG/DL (7-18); Calcium 8.4 MG/DL (8.5-10.1); Estimated Glom Filtration Rate 11 ML/MIN; Glucose 155 MG/DL (74-106); Osmolality,Calculated 270.8 MOS/KG (273-304); Total Protein 7.3 G/DL (6.4-8.3)
[2020-01-15] MEDS ORDERED: ONDANSETRON 4 MG/2 ML VIAL ONE (19:15)
[2020-01-15] MEDS ORDERED: VECURONIUM 10 MG VIAL IV ONE (19:22)
[2020-01-15] MEDS ORDERED: ALBUTEROL/IPRATROPIUM 3 ML NEB RESP TX PRN (20:32)
[2020-01-15] MEDS ORDERED: IBUPROFEN 200 MG TABLET PO PRN (20:32)
[2020-01-15] MEDS ORDERED: ONDANSETRON 4 MG/2 ML VIAL IV PRN (20:32)
[2020-01-15] MEDS ORDERED: MORPHINE 4 MG/1 ML VIAL IV PRN (20:32)
[2020-01-15 20:49] LABS: Allen Test Positive; Pt O2 Delivery Device Ventilator
[2020-01-15 20:51] LABS: ABG Base Excess -0.6 MMOL/L (-2.5-2.5); ABG HCO3 23.9 MMOL/L (20-26); ABG Oxygen Saturation 99.5 % (95-100); ABG PCO2 56.4 MM HG (35-48); ABG PH 7.288 (7.35-7.45); ABG TCO2 24.6 MMOL/L (23-27)
[2020-01-15] MEDS: ENOXAPARIN 30 MG/0.3 ML SYRINGE SUBCUT SCH (21:27)
[2020-01-15] MEDS: AMIODARONE INJ 150 MG in DEXTROSE 5% 100 ML IV SCH ×2 (21:27→23:14)
[2020-01-15] MEDS: SODIUM CHLORIDE 0.9% 1,000 ML IV SCH (21:28)
[2020-01-15] MEDS: MEROPENEM 500 MG in SODIUM CHLORIDE 0.9% 100 ML IV SCH (21:29)
[2020-01-15] MEDS: NOREPINEPHRINE 8 MG in SODIUM CHLORIDE 0.9% 242 ML IV PRN (22:33)
[2020-01-16 03:09] LABS: Allen Test Positive; Pt O2 Delivery Device Ventilator
[2020-01-16 03:10] LABS: ABG Base Excess 3.2 MMOL/L (-2.5-2.5); ABG HCO3 27.3 MMOL/L (20-26); ABG PCO2 34.1 MM HG (35-48); ABG PH 7.494 (7.35-7.45); ABG TCO2 23.4 MMOL/L (23-27)
[2020-01-16 04:48] LABS: Basophils % 0.2 % (0.0-0.8); Hematocrit 33.7 VOL% (42.0-52.0); Hemoglobin 10.5 GM/DL (14.0-18.0); Immature Granulocytes Absolute 0.21 #; Lymphocytes % 9.4 % (21.2-54.2); Mean Corpuscular HGB Conc 31.2 GM/DL (32-36); Mean Corpuscular Volume 89.9 FL (87-102); Mean Platelet Volume 11.9 FL (9.6-12.0); Monocytes % 8.7 % (1.7-12.7); Neutrophils % 79.7 % (38.7-73.9); Red Blood Count 3.75 MC/CUMM (3.8-5.5); Red Cell Distribution Width 16.3 % (9.3-17.3); White Blood Count 10.6 T/CUMM (4-12)
[2020-01-16 04:50] LABS: Platelet Count 80 T/CUMM (130-400)
[2020-01-16] MEDS: ACETAMINOPHEN 325 MG TABLET PO PRN (05:03)
[2020-01-16 05:12] LABS: Calcium 7.7 MG/DL (8.5-10.1); Osmolality,Calculated 274.8 MOS/KG (273-304)
[2020-01-16 05:14] LABS: Troponin I 2.41 NG/ML (0.00-0.045)
[2020-01-16] MEDS: MEROPENEM 500 MG in SODIUM CHLORIDE 0.9% 100 ML IV SCH ×3 (06:34→21:30)
[2020-01-16] MEDS: PANTOPRAZOLE 40 MG TABLET PO SCH (08:06)
[2020-01-16 08:36] LABS: Band Neutrophils 12 % (0-10); Lymphocytes 6 % (20-55); Metamyelocytes 3 %; Segmented Neutrophils 75 % (50-85); Total Cells Counted 100
[2020-01-16 08:39] LABS: Hypochromasia 1+
[2020-01-16 08:40] LABS: Microcytosis 1+
[2020-01-16 08:41] LABS: Tear Drop Cells Slight
[2020-01-16 11:05] LABS: Apearance,Urine CLOUDY (Clear); Bacteria,Urine Occasional /HPF (Few); Bilirubin,Urine Negative (Negative); Blood, Urine Large mg/dL (Negative); Glucose,Urine (UA) 50 mg/dL (Negative); Ketones,Urine Negative (Negative); Mucus,Urine Occasional /LPF (Occasional); Nitrite,Urine Negative (Negative); Protein,Urine >=500 MG/DL; RBC,Urine 152 /HPF (0-4); Sperm,Urine Few /HPF (Negative); Squamous Epithelial Cell,Urine Occasional /HPF (0-10); Urine Specific Gravity 1.024 (1.001-1.035); Urine Urobilinogen < 2.0 EU/DL (0.2-1.0); WBC,Urine 1223 /HPF (0-6)
[2020-01-16 11:06] LABS: Urine Color Yellow (Yellow)
[2020-01-16] MEDS: NOREPINEPHRINE 8 MG in SODIUM CHLORIDE 0.9% 242 ML IV PRN (11:20)
[2020-01-16] MEDS: LORazepam 2 MG/1 ML VIAL IV PRN ×2 (13:22→16:35)
[2020-01-16] MEDS ORDERED: LORazepam 2 MG/1 ML VIAL ONE (13:24)
[2020-01-16] MEDS ORDERED: PHENYTOIN 100 MG/2 ML VIAL IV SCH (15:00)
[2020-01-16] MEDS: ENOXAPARIN 30 MG/0.3 ML SYRINGE SUBCUT SCH (21:14)
[2020-01-16] MEDS: SODIUM CHLORIDE 0.9% 1,000 ML IV SCH (21:14)
[2020-01-17 04:42] LABS: Basophils % 0.2 % (0.0-0.8); Hematocrit 30.8 VOL% (42.0-52.0); Hemoglobin 9.5 GM/DL (14.0-18.0); Immature Granulocytes % 0.8 %; Immature Granulocytes Absolute 0.05 #; Lymphocytes # 0.6 10*3/uL (1.4-4.0); Mean Corpuscular HGB Conc 30.8 GM/DL (32-36); Mean Corpuscular Volume 90.3 FL (87-102); Monocytes % 5.9 % (1.7-12.7); Neutrophils % 83.1 % (38.7-73.9); Red Blood Count 3.41 MC/CUMM (3.8-5.5); Red Cell Distribution Width 16.9 % (9.3-17.3); White Blood Count 6.3 T/CUMM (4-12)
[2020-01-17 04:43] LABS: ABG Base Excess -3.6 MMOL/L (-2.5-2.5); ABG HCO3 21.4 MMOL/L (20-26); ABG Oxygen Saturation 98.8 % (95-100); ABG PCO2 35.3 MM HG (35-48); ABG PH 7.382 (7.35-7.45); ABG TCO2 19.2 MMOL/L (23-27); Platelet Count 40 T/CUMM (130-400)
[2020-01-17 04:58] LABS: Calcium 7.7 MG/DL (8.5-10.1); Osmolality,Calculated 286.2 MOS/KG (273-304)
[2020-01-17 05:00] LABS: Atypical Lymphocytes Few; Band Neutrophils 2 % (0-10); Lymphocytes 8 % (20-55); Segmented Neutrophils 86 % (50-85); Total Cells Counted 100
[2020-01-17 05:01] LABS: Hypochromasia 1+; Microcytosis 1+; Ovalocytes Slight; Platelet Estimate Decreased
[2020-01-17] MEDS: MEROPENEM 500 MG in SODIUM CHLORIDE 0.9% 100 ML IV SCH (06:20)
[2020-01-17] MEDS: PANTOPRAZOLE 40 MG TABLET PO SCH (09:00)
[2020-01-17] MEDS ORDERED: VANCOMYCIN INJ 750 MG in SODIUM CHLORIDE 0.9% 250 ML IV PRN (09:16)
[2020-01-17] MEDS ORDERED: VANCOMYCIN INJ 1,000 MG in SODIUM CHLORIDE 0.9% 250 ML IV ONE (09:30)
[2020-01-17] MEDS ORDERED: FAMOTIDINE 20 MG/2 ML VIAL IV SCH (09:30)
[2020-01-17] MEDS ORDERED: cefTRIAXone 1,000 MG in SYRINGE 1 EACH IV SCH (09:30)
[2020-01-17 11:14] LABS: Basophils % 0.2 % (0.0-0.8); Hematocrit 28.8 VOL% (42.0-52.0); Hemoglobin 8.8 GM/DL (14.0-18.0); Immature Granulocytes % 0.6 %; Immature Granulocytes Absolute 0.04 #; Lymphocytes # 0.4 10*3/uL (1.4-4.0); Mean Corpuscular HGB Conc 30.6 GM/DL (32-36); Mean Corpuscular Volume 90.3 FL (87-102); Monocytes % 4.9 % (1.7-12.7); Neutrophils % 87.3 % (38.7-73.9); Red Blood Count 3.19 MC/CUMM (3.8-5.5); White Blood Count 6.2 T/CUMM (4-12)
[2020-01-17 11:16] LABS: Platelet Count 37 T/CUMM (130-400)
[2020-01-17 11:26] LABS: Band Neutrophils 1 % (0-10); Lymphocytes 7 % (20-55); Segmented Neutrophils 89 % (50-85); Total Cells Counted 100
[2020-01-17 11:27] LABS: Hypochromasia 1+; INR 1.1; Microcytosis 1+; Ovalocytes Slight; PT Patient Result 11.7 SECS (9.6-12.2); Partial Thromboplastin Time 37.5 SECS (20.8-36.0); Platelet Estimate Decreased
[2020-01-17] MEDS ORDERED: GLUCAGON 1 MG VIAL IM PRN (11:57)
[2020-01-17] MEDS ORDERED: DEXTROSE 10% 250 ML BAG IV PRN (12:01)
[2020-01-17] MEDS ORDERED: HEPARIN 2,000 UNIT/2 ML VIAL IV ONE (12:30)
[2020-01-17] MEDS ORDERED: HEPARIN 1,000 UNIT/1 ML VIAL IV ONE (13:00)
[2020-01-17] MEDS: INSULIN REGULAR 100 UNIT/ML SUBCUT SCH ×2 (13:38→17:36)
[2020-01-17] MEDS: FAMOTIDINE 20 MG/2 ML VIAL IV SCH (21:09)
[2020-01-17] MEDS: ACETAMINOPHEN 325 MG TABLET PO PRN (21:14)
[2020-01-18] MEDS: INSULIN REGULAR 100 UNIT/ML SUBCUT SCH ×4 (01:17→17:01)
[2020-01-18 03:54] LABS: ABG Base Excess -7.8 MMOL/L (-2.5-2.5); ABG Oxygen Saturation 98.5 % (95-100); ABG PCO2 37.5 MM HG (35-48); ABG PH 7.298 (7.35-7.45); ABG PO2 148.6 MM HG (80-95); ABG TCO2 19.1 MMOL/L (23-27)
[2020-01-18 03:57] LABS: Basophils % 0.4 % (0.0-0.8); Hematocrit 29.5 VOL% (42.0-52.0); Immature Granulocytes Absolute 0.48 #; Lymphocytes # 0.3 10*3/uL (1.4-4.0); Lymphocytes % 3.4 % (21.2-54.2); Mean Corpuscular HGB Conc 30.5 GM/DL (32-36); Mean Corpuscular Volume 91.6 FL (87-102); Monocytes % 3.1 % (1.7-12.7); Neutrophils % 87.1 % (38.7-73.9); Red Blood Count 3.22 MC/CUMM (3.8-5.5)
[2020-01-18 04:00] LABS: Platelet Count 37 T/CUMM (130-400)
[2020-01-18 04:23] LABS: Calcium 7.7 MG/DL (8.5-10.1); Osmolality,Calculated 293.2 MOS/KG (273-304)
[2020-01-18 04:39] LABS: Prealbumin 6.4 MG/DL (20-40)
[2020-01-18 04:40] LABS: Band Neutrophils 2 % (0-10); Hypochromasia Slight; Lymphocytes 3 % (20-55); Platelet Estimate Decreased; Segmented Neutrophils 91 % (50-85); Total Cells Counted 100
[2020-01-18] MEDS ORDERED: MEROPENEM 500 MG in SODIUM CHLORIDE 0.9% 100 ML IV SCH (06:30)
[2020-01-18] MEDS ORDERED: DIPHENOXYLATE/ATROPINE 2.5-0.025 MG TABLET PO PRN (09:27)
[2020-01-18] MEDS: FAMOTIDINE 20 MG/2 ML VIAL IV SCH ×2 (09:36→21:06)
[2020-01-18] MEDS: ceFAZolin 2,000 MG in PREMIX 1 EACH IV SCH (13:18)
[2020-01-18] MEDS ORDERED: HEPARIN 10,000 UNIT/10 ML VIAL IV PRN (13:39)
[2020-01-18] MEDS ORDERED: LIDOCAINE 2% 20 ML VIAL ONE (16:04)
[2020-01-18] MEDS ORDERED: SODIUM CHLORIDE 0.9% 1,000 ML IV PRN (16:43)
[2020-01-19] MEDS ORDERED: NOREPINEPHRINE 4 MG/4 ML VIAL IV ONE (00:35)
[2020-01-19] MEDS: INSULIN REGULAR 100 UNIT/ML SUBCUT SCH ×5 (00:40→23:59)
[2020-01-19] MEDS: NOREPINEPHRINE 8 MG in SODIUM CHLORIDE 0.9% 242 ML IV PRN ×2 (00:40→00:47)
[2020-01-19 03:58] LABS: ABG Base Excess -2.2 MMOL/L (-2.5-2.5); ABG HCO3 22.6 MMOL/L (20-26); ABG Oxygen Saturation 99.2 % (95-100); ABG PH 7.311 (7.35-7.45); ABG TCO2 22.4 MMOL/L (23-27)
[2020-01-19 04:21] LABS: Basophils % 0.4 % (0.0-0.8); Eosinophils # 0.1 10*3/uL (0.0-0.87); Eosinophils % 1.4 % (0.00-10.9); Hematocrit 29.8 VOL% (42.0-52.0); Lymphocytes # 0.4 10*3/uL (1.4-4.0); Lymphocytes % 8.3 % (21.2-54.2); Mean Corpuscular HGB Conc 30.2 GM/DL (32-36); Mean Corpuscular Volume 91.1 FL (87-102); Monocytes % 7.1 % (1.7-12.7); Neutrophils % 80.8 % (38.7-73.9); Red Blood Count 3.27 MC/CUMM (3.8-5.5); Red Cell Distribution Width 17.1 % (9.3-17.3); White Blood Count 5.1 T/CUMM (4-12)
[2020-01-19 04:29] LABS: Osmolality,Calculated 283.4 MOS/KG (273-304)
[2020-01-19 04:31] LABS: Platelet Count 48 T/CUMM (130-400)
[2020-01-19 04:48] LABS: Hypochromasia 1+; Lymphocytes 8 % (20-55); Microcytosis 1+; Segmented Neutrophils 90 % (50-85); Target Cells Slight; Total Cells Counted 100
[2020-01-19 04:49] LABS: Platelet Estimate Decreased
[2020-01-19] MEDS ORDERED: HEPARIN 10,000 UNIT/10 ML VIAL IV SCH (07:00)
[2020-01-19] MEDS: FAMOTIDINE 20 MG/2 ML VIAL IV SCH ×2 (08:08→21:04)
[2020-01-19] MEDS: ceFAZolin 2,000 MG in PREMIX 1 EACH IV SCH (12:33)
[2020-01-19] MEDS: METOCLOPRAMIDE 10 MG/2 ML VIAL IV SCH ×3 (12:33→23:59)
[2020-01-19 20:15] LABS: HIT Interpretation Negative (Negative)
[2020-01-20 04:17] LABS: ABG Base Excess -3.1 MMOL/L (-2.5-2.5); ABG HCO3 21.8 MMOL/L (20-26); ABG Oxygen Saturation 98.8 % (95-100); ABG PCO2 41.5 MM HG (35-48); ABG PH 7.341 (7.35-7.45); ABG TCO2 20.7 MMOL/L (23-27)
[2020-01-20 04:50] LABS: Basophils % 0.4 % (0.0-0.8); Eosinophils # 0.1 10*3/uL (0.0-0.87); Eosinophils % 1.8 % (0.00-10.9); Hematocrit 28.5 VOL% (42.0-52.0); Hemoglobin 8.8 GM/DL (14.0-18.0); Immature Granulocytes % 1.6 %; Immature Granulocytes Absolute 0.08 #; Lymphocytes # 0.6 10*3/uL (1.4-4.0); Lymphocytes % 11.4 % (21.2-54.2); Mean Corpuscular HGB Conc 30.9 GM/DL (32-36); Mean Corpuscular Volume 89.9 FL (87-102); Monocytes % 7.3 % (1.7-12.7); Neutrophils % 77.5 % (38.7-73.9); Platelet Count 68 T/CUMM (130-400); Red Blood Count 3.17 MC/CUMM (3.8-5.5); Red Cell Distribution Width 17.1 % (9.3-17.3); White Blood Count 5.1 T/CUMM (4-12)
[2020-01-20 05:13] LABS: Calcium 8.2 MG/DL (8.5-10.1); Osmolality,Calculated 288.4 MOS/KG (273-304)
[2020-01-20 05:20] LABS: Band Neutrophils 1 % (0-10); Eosinophils 2 % (0-10); Hypochromasia 1+; Lymphocytes 11 % (20-55); Segmented Neutrophils 77 % (50-85); Total Cells Counted 100
[2020-01-20 05:21] LABS: Microcytosis 1+; Ovalocytes Slight; Platelet Estimate Decreased
[2020-01-20] MEDS: METOCLOPRAMIDE 10 MG/2 ML VIAL IV SCH ×4 (05:51→23:09)
[2020-01-20] MEDS: INSULIN REGULAR 100 UNIT/ML SUBCUT SCH ×4 (05:52→23:03)
[2020-01-20] MEDS ORDERED: LABETALOL 20 MG/4 ML SYRINGE IV ONE (09:12)
[2020-01-20] MEDS ORDERED: LORazepam 2 MG/1 ML VIAL IV PRN (09:15)
[2020-01-20] MEDS: FAMOTIDINE 20 MG/2 ML VIAL IV SCH ×2 (09:44→21:21)
[2020-01-20] MEDS: ceFAZolin 2,000 MG in PREMIX 1 EACH IV SCH (11:15)
[2020-01-20] MEDS ORDERED: SODIUM CHLORIDE 0.9% 1,000 ML IV PRN (18:07)
[2020-01-21] MEDS: INSULIN REGULAR 100 UNIT/ML SUBCUT SCH ×3 (05:01→18:48)
[2020-01-21] MEDS: METOCLOPRAMIDE 10 MG/2 ML VIAL IV SCH ×3 (05:01→18:54)
[2020-01-21 05:40] LABS: Basophils % 0.6 % (0.0-0.8); Calcium 8.3 MG/DL (8.5-10.1); Eosinophils # 0.1 10*3/uL (0.0-0.87); Eosinophils % 2.1 % (0.00-10.9); Hematocrit 28.2 VOL% (42.0-52.0); Hemoglobin 8.7 GM/DL (14.0-18.0); Immature Granulocytes % 2.1 %; Immature Granulocytes Absolute 0.11 #; Lymphocytes # 0.8 10*3/uL (1.4-4.0); Mean Corpuscular HGB Conc 30.9 GM/DL (32-36); Mean Corpuscular Volume 88.7 FL (87-102); Monocytes % 8.1 % (1.7-12.7); Neutrophils % 72.1 % (38.7-73.9); Osmolality,Calculated 289.5 MOS/KG (273-304); Platelet Count 108 T/CUMM (130-400); Red Blood Count 3.18 MC/CUMM (3.8-5.5); Red Cell Distribution Width 17.1 % (9.3-17.3); White Blood Count 5.3 T/CUMM (4-12)
[2020-01-21 06:40] LABS: ABG Base Excess -3.1 MMOL/L (-2.5-2.5); ABG HCO3 21.8 MMOL/L (20-26); ABG PCO2 37.8 MM HG (35-48); ABG PH 7.369 (7.35-7.45); ABG TCO2 20.2 MMOL/L (23-27); Allen Test Positive; Pt O2 Delivery Device Ventilator
[2020-01-21] MEDS: FAMOTIDINE 20 MG/2 ML VIAL IV SCH ×2 (09:32→21:05)
[2020-01-21] MEDS ORDERED: CLINDAMYCIN INJ 900 MG in PREMIX 1 EACH IV ONE (10:19)
[2020-01-21] MEDS ORDERED: LIDOCAINE 1%/EPI INJ 20 ML VIAL ONE (10:33)
[2020-01-21] MEDS ORDERED: HEPARIN 5,000 UNIT/1 ML VIAL ONE (10:33)
[2020-01-21] MEDS ORDERED: BUPIVACAINE MPF 0.25% 30 ML VIAL ONE (10:33)
[2020-01-21] MEDS: ceFAZolin 2,000 MG in PREMIX 1 EACH IV SCH (13:47)
[2020-01-21] MEDS ORDERED: VECURONIUM 10 MG VIAL IV ONE ×2 (14:14→14:15)
[2020-01-22] MEDS: INSULIN REGULAR 100 UNIT/ML SUBCUT SCH ×4 (00:50→17:32)
[2020-01-22] MEDS: METOCLOPRAMIDE 10 MG/2 ML VIAL IV SCH ×4 (00:52→17:54)
[2020-01-22 04:02] LABS: ABG HCO3 19.4 MMOL/L (20-26); ABG Oxygen Saturation 98.6 % (95-100); ABG PCO2 33.3 MM HG (35-48); ABG PH 7.383 (7.35-7.45); ABG PO2 134.2 MM HG (80-95); ABG TCO2 20.4 MMOL/L (23-27); Pt O2 Delivery Device Ventilator
[2020-01-22 05:36] LABS: Basophils % 0.7 % (0.0-0.8); Eosinophils # 0.1 10*3/uL (0.0-0.87); Hematocrit 29.3 VOL% (42.0-52.0); Hemoglobin 8.8 GM/DL (14.0-18.0); Immature Granulocytes % 1.6 %; Lymphocytes # 0.9 10*3/uL (1.4-4.0); Lymphocytes % 15.4 % (21.2-54.2); Mean Corpuscular Volume 90.7 FL (87-102); Mean Platelet Volume 11.6 FL (9.6-12.0); Monocytes % 9.5 % (1.7-12.7); Neutrophils % 70.8 % (38.7-73.9); Platelet Count 144 T/CUMM (130-400); Red Blood Count 3.23 MC/CUMM (3.8-5.5); Red Cell Distribution Width 17.2 % (9.3-17.3); White Blood Count 6.1 T/CUMM (4-12)
[2020-01-22 05:55] LABS: Calcium 8.1 MG/DL (8.5-10.1); Osmolality,Calculated 293.5 MOS/KG (273-304)
[2020-01-22] MEDS ORDERED: CLINDAMYCIN INJ 900 MG in PREMIX 1 EACH IV ONE (06:30)
[2020-01-22] MEDS: FAMOTIDINE 20 MG/2 ML VIAL IV SCH ×2 (08:47→20:57)
[2020-01-22] MEDS ORDERED: LIDOCAINE 1%/EPI INJ 20 ML VIAL ONE (11:36)
[2020-01-22] MEDS ORDERED: BUPIVACAINE MPF 0.25% 30 ML VIAL ONE (11:36)
[2020-01-22] MEDS ORDERED: HEPARIN 5,000 UNIT/1 ML VIAL ONE (11:36)
[2020-01-22] MEDS: ceFAZolin 2,000 MG in PREMIX 1 EACH IV SCH (12:06)
[2020-01-22] MEDS ORDERED: ROCURONIUM 100 MG/10 ML VIAL IV ONE (13:34)
[2020-01-22] MEDS ORDERED: MIDAZOLAM 10 MG/2 ML VIAL ONE (13:34)
[2020-01-22 17:29] VITALS: BP 167/101
[2020-01-22] MEDS ORDERED: HEPARIN 10,000 UNIT/10 ML VIAL IV SCH (18:00)
[2020-01-23] MEDS: METOCLOPRAMIDE 10 MG/2 ML VIAL IV SCH ×4 (00:45→18:31)
[2020-01-23] MEDS: INSULIN REGULAR 100 UNIT/ML SUBCUT SCH ×4 (04:10→18:13)
[2020-01-23 04:31] LABS: Basophils % 0.6 % (0.0-0.8); Eosinophils # 0.1 10*3/uL (0.0-0.87); Eosinophils % 1.4 % (0.00-10.9); Hemoglobin 9.1 GM/DL (14.0-18.0); Immature Granulocytes Absolute 0.13 #; Lymphocytes % 16.2 % (21.2-54.2); Mean Corpuscular HGB Conc 31.4 GM/DL (32-36); Mean Corpuscular Volume 88.1 FL (87-102); Monocytes % 10.1 % (1.7-12.7); Neutrophils % 69.7 % (38.7-73.9); Platelet Count 175 T/CUMM (130-400); Red Blood Count 3.29 MC/CUMM (3.8-5.5); Red Cell Distribution Width 17.2 % (9.3-17.3); White Blood Count 6.4 T/CUMM (4-12)
[2020-01-23 04:45] LABS: ABG Base Excess -1.8 MMOL/L (-2.5-2.5); ABG HCO3 21.5 MMOL/L (20-26); ABG Oxygen Saturation 98.6 % (95-100); ABG PH 7.459 (7.35-7.45); ABG PO2 133.4 MM HG (80-95); ABG TCO2 22.5 MMOL/L (23-27); Allen Test Positive; Pt O2 Delivery Device Ventilator
[2020-01-23 04:52] LABS: Calcium 8.1 MG/DL (8.5-10.1); Osmolality,Calculated 287.1 MOS/KG (273-304)
[2020-01-23] MEDS: FAMOTIDINE 20 MG/2 ML VIAL IV SCH ×2 (09:00→21:01)
[2020-01-23 10:22] LABS: Albumin 2.1 G/DL (3.4-5.0); Bilirubin,Direct 0.58 MG/DL (0.0-0.20); Bilirubin,Indirect 0.3 MG/DL (0.0-1.0); Bilirubin,Total 0.9 MG/DL (0.2-1.0); Total Protein 6.6 G/DL (6.4-8.3)
[2020-01-23] MEDS: ceFAZolin 2,000 MG in PREMIX 1 EACH IV SCH (11:14)
[2020-01-24] MEDS: INSULIN REGULAR 100 UNIT/ML SUBCUT SCH ×3 (00:46→12:24)
[2020-01-24] MEDS: METOCLOPRAMIDE 10 MG/2 ML VIAL IV SCH ×3 (01:00→12:24)
[2020-01-24 03:46] LABS: ABG Base Excess -3.2 MMOL/L (-2.5-2.5); ABG HCO3 21.7 MMOL/L (20-26); ABG PCO2 34.7 MM HG (35-48); ABG PH 7.392 (7.35-7.45); ABG TCO2 19.5 MMOL/L (23-27); Allen Test Positive; Pt O2 Delivery Device Ventilator
[2020-01-24 05:24] LABS: Basophils % 0.6 % (0.0-0.8); Eosinophils # 0.1 10*3/uL (0.0-0.87); Eosinophils % 1.6 % (0.00-10.9); Hematocrit 31.2 VOL% (42.0-52.0); Hemoglobin 9.5 GM/DL (14.0-18.0); Immature Granulocytes % 2.2 %; Immature Granulocytes Absolute 0.14 #; Mean Corpuscular HGB Conc 30.4 GM/DL (32-36); Mean Corpuscular Volume 90.4 FL (87-102); Mean Platelet Volume 10.8 FL (9.6-12.0); Monocytes % 11.9 % (1.7-12.7); Neutrophils % 68.7 % (38.7-73.9); Platelet Count 211 T/CUMM (130-400); Red Blood Count 3.45 MC/CUMM (3.8-5.5); Red Cell Distribution Width 17.4 % (9.3-17.3); White Blood Count 6.4 T/CUMM (4-12)
[2020-01-24 05:54] LABS: Calcium 8.6 MG/DL (8.5-10.1); Osmolality,Calculated 291.4 MOS/KG (273-304)
[2020-01-24] MEDS ORDERED: carvediloL 3.125 MG TABLET PO SCH (09:00)
[2020-01-24] MEDS: ceFAZolin 2,000 MG in PREMIX 1 EACH IV SCH (12:24)
[2020-01-24] MEDS ORDERED: FAMOTIDINE 20 MG/2 ML VIAL IV SCH (21:00)
== END 2020-01-24 13:30 | DRG 314 ==
LOC: N.ED 14:46 → N.CC 18:33 → SUATTDRO 18:33 → N.CC 19:10
PROVIDERS: ADMIT Internal Medicine; ATTEND Internal Medicine